=== PATIENT | male | born 1940 | race Caucasian/White ===

== ENCOUNTER 2019-09-02 21:27 | Inpatient (IN) ==
[2019-09-02] MEDS ORDERED: FUROSEMIDE 10 MG/ML VIAL IV ONE (22:48)
[2019-09-02 23:03] LABS: Hematocrit 33.1 % (42.0-52.0); Hemoglobin 10.8 gm/dL (13.5-18.0); Mean Cell Volume 95.1 fl (78-100); Mean Corpuscular Hgb Conc 32.6 g/dl (32-36); Mean Platelet Volume 9.4 fl (8-11.3); Neutrophil # 6.1 K/mm3 (1.3-6.0); Neutrophil % 73.3 % (42-75.0); Platelet Count 166 K/mm3 (150-450); Red Blood Count 3.48 M/mm3 (4.7-6.0); Red Cell Distribution Width 15.8 % (11.5-14.0); White Blood Count 8.3 K/mm3 (4.0-10.5)
--- NOTE | 2019-09-02 23:06 | ERNOTE ---
ER Male HPI Date of Service: 09/02/19 Stated Complaint: LEG EDEMA ER Male: other - anasarca Time Seen by Provider: 09/02/19 22:23 Source: patient Immunizations: IMMUNIZATION HX Immunizations Up to Date Yes History of Influenza Vaccine No Hx Pneumococcal Vaccination Yes Allergies/Adverse Reactions: Allergies hydralazine [Hydralazine] Adverse Reaction (Intermediate, Verified 09/03/19 02:25) Nausea levofloxacin [From Levaquin] Adverse Reaction (Intermediate, Verified 09/03/19 02:25) feet swelling Home Medications: HOME MEDICATIONS fluocinolone 0.025 % topical cream 1 applic TP BID #120 g 08/13/18 [Last Taken Unknown] ascorbic acid (vitamin C) 1,000 mg tablet 1 g PO DAILY #30 tab 08/23/18 [Last Taken Unknown] beta carotene 30 mg capsule 30 mg PO DAILY #30 cap 08/23/18 [Last Taken Unknown] fexofenadine 180 mg tablet 180 mg PO DAILY #30 tab 10/20/18 [Last Taken Unknown] omega-3 fatty acids 1,000 mg capsule 1,000 mg PO DAILY #30 cap 10/20/18 [Last Taken Unknown] omeprazole 40 mg capsule,delayed release 40 mg PO BID #180 cap 10/20/18 [Last Taken Unknown] vitamin B complex 1 tab PO DAILY #30 tab 10/20/18 [Last Taken Unknown] olopatadine 0.6 % nasal spray 2 spray MICHEAL BID #61 g 11/08/18 [Last Taken Unknown] betamethasone valerate 0.1 % topical cream 1 applic TP BID #45 g 05/05/19 [Last Taken Unknown] atenolol 50 mg tablet 50 mg PO BID #60 tab 08/23/19 [Last Taken Unknown] clotrimazole 1 % topical solution 1 applic TP BID #30 ml 08/23/19 [Last Taken Unknown] eplerenone 25 mg tablet 25 mg PO DAILY #30 tab 08/23/19 [Last Taken Unknown] furosemide 80 mg tablet 80 mg PO DAILY #90 tab 08/23/19 [Last Taken Unknown] losartan 100 mg tablet 100 mg PO DAILY #90 tab 08/23/19 [Last Taken Unknown] minoxidil 10 mg tablet 20 mg PO BID #120 tab 08/23/19 [Last Taken Unknown] prazosin 5 mg capsule 5 mg PO Q12H #180 cap 08/23/19 [Last Taken Unknown] Acetaminophen 650 mg PO BID PRN 08/31/19 [Last Taken Unknown] mupirocin 2 % topical ointment 1 applic TP BID #22 g 08/31/19 [Last Taken Unknown] - History of Present Illness Narrative: Patient is a 79 years old male who present with a weight increase of 7 pounds in the last 48 hours. Patient was seen here on August 31Thursday, for legs and scrotal swelling. He was discharged with increase in his dose of furosemide from 80 mg to 120 daily. However patient reports that it has not been effective, and now his scrotum is twice as big, and painful He reports to have been seen by Dr Mata who wanted to admit but his primary wanted to try outpatient treatment first Date (Duration): 08/27/19 Quality: Present: severe, fullness Onset Location: Present: groin, scrotal Radiation: Present: other - down his legs and up his abdomen Prior Treatment: Present: recently seen Review of Systems - Review of Systems Constitutional: Absent: fever EYE: Absent: blurred vision ENT: Absent: ear pain Respiratory: Present: orthopnea. Absent: shortness of breath Cardiology: Absent: chest pain Gastrointestinal/Abdominal: Present: other - feeling of abdominal fullness Genitourinary: Present: pain Musculoskeletal: Present: other - thighs and legs swelling All Other Systems: All systems neg except as marked Medical History (Last Reviewed 09/03/19 @ 02:24 by Mike Kim RN) Edema (Acute) improving Gastroesophageal reflux disease (Chronic) Hypertension (Chronic) Ankle fracture Onset Date: Unknown Ingrown nail Onset Date: ~09/23/13 Aortic insufficiency Onset Date: Unknown Mild to moderate aortic insufficiency with well preserved left ventricular function BPH (benign prostatic hyperplasia) Onset Date: Unknown Cholecystitis Onset Date: Unknown Cholelithiasis Onset Date: Unknown DJD (degenerative joint disease), multiple sites Onset Date: Unknown Erectile dysfunction Onset Date: Unknown History of gastroesophageal reflux (GERD) Onset Date: ~05/27/11 Hypertension Onset Date: ~05/24/11 Obesity Onset Date: Unknown Obstructive sleep apnea Onset Date: Unknown refuses to wear cpap Pneumonia Onset Date: Unknown Pulmonary hypertension Onset Date: Unknown felt to be secondary to sleep apnea Rhinitis Onset Date: Unknown Vitamin D deficiency Onset Date: Unknown Surgical History: Surgical History (Last Reviewed 09/03/19 @ 02:24 by Mike Kim RN) H/O adenoidectomy Onset Date: Unknown as a teenager H/O colonoscopy Onset Date: ~02/11/05 with biopsy Tinguely; scattered sigmoid diverticulosis. Left colon polyp History of appendectomy Onset Date: Unknown History of esophagogastroduodenoscopy (EGD) Onset Date: ~02/11/05 Tinguely; irritation/inflammation History of laparoscopic cholecystectomy Onset Date: ~04/11/10 Tinguely; with cholangiography History of tonsillectomy Onset Date: Unknown as a teenager Skin lesion Onset Date: ~06/16/14 [place]; Multiple around neck Family History: Family History (Last Reviewed 09/03/19 @ 02:24 by Mike Kim RN) Father , age 70 Myocardial infarction Mother , age 78 Heart disease Social History: (Last Reviewed 09/03/19 @ 02:24 by Mike Kim RN) Social History: adopted: No jail: No Marital status: / lives independently: Yes household members: none current occupational status: retired Highest education level completed: 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: occupat Service: Yes branch: [employer] Tobacco: Smoking Status: Former smoker how long ago did patient quit smoking: age 40's Alcohol: alcohol intake: former Substance Use: substance use type: does not use Dietary Habits: caffeine: Yes Physical Exam - Physical Exam General Appearance: Present: alert Head Exam: Present: normal inspection Eye Exam: Normal inspection: bilateral Ears, Nose, Throat: Present: normal ENT inspection Respiratory: Present: normal breath sounds Cardiovascular/Chest: Present: regular rate, rhythm Peripheral Pulses: N=norm/S=strong/W=weak/B=bound/A=absent: Radial (R): Normal, Radial (L): Normal, Dorsalis-pedis (R): Normal, Dorsalis-pedis (L): Normal Gastrointestinal/Abdominal: Present: other - distended Male Genitals Exam: Present: scrotum tenderness (R), other - scrotum and genitalia enlarged with edema Neurological Exam: Present: alert, oriented, normal mood/affect DTR: N=norm/NB=norm/brisk/A=abs/DD=dull/dimin/HC=hyperactive: Ankle (R): Normal, Ankle (L): Normal Skin Exam: Present: other - erythema of genitalia Lymphatic Exam: Present: no adenopathy Progress - Vital Signs Vital Signs: Vital Signs 09/02/19 21:38 Temperature 37 C Pulse Rate 52 L Respiratory Rate 14 Blood Pressure 114/63 O2 Sat by Pulse Oximetry 95 - Progress/Reassessment Chief Complaint: Genitourinary Problem Progress Note-Subjective: 09/03/19 00:40 patient with anasarca, scrotal swelling, pleural effusion and acute renal failur e who failed outpatient treatment. In the ED, received 120 mg IV of furosemide, which allowed him to start urinating, which felt good. Patient large weight gain, 7 lbs, and failed outpatient per oral medication, case discussed with Dr Alejandra, who accepted admission to med/surg inpatient 09/03/19 10:33 - Transfer of Care Expected Disposition: Admit Departure Clinical Impression: Anasarca, Scrotal swelling, Pleural effusion, Acute renal failure - Departure Disposition: Still a patient Condition: Fair
[2019-09-02 23:09] LABS: Urine Bilirubin Negative (NEGATIVE); Urine Ketone Negative (NEGATIVE); Urine Nitrite Negative (NEGATIVE); Urine Protein 30 mg/dL (NEGATIVE); Urine Specific Gravity 1.025 SP.GR. (1.005-1.030); Urine Urobilinogen Normal (NORMAL); Urine pH 5.5 pH (5.0-7.0)
[2019-09-02 23:10] LABS: Urine Appearance Slightly Cloudy (CLEAR); Urine Bacteria 3+; Urine Blood 10 /ul (NEGATIVE); Urine Color Yellow; Urine RBC 0-5 /hpf (0-5); Urine Renal Epithelial Cell Moderate - 2+ /hpf
[2019-09-02 23:24] LABS: Albumin * 3.7 gm/dl (3.4-5.0); Anion Gap 12.9 mmol/L (6.8-13.8); Bilirubin, Total 0.6 mg/dL (0.0-1.1); Ca. Corrected For Albumin 8.6 mg/dL (8.4-10.2); Calcium * 8.7 mg/dL (7.9-10.9); Carbon Dioxide 28.7 mmol/L (24-32.6); Potassium 4.6 mmol/L (3.4-4.6); Total Protein 6.9 gm/dL (6.2-8.2)
[2019-09-03] MEDS ORDERED: NYSTATIN 15 APPL TUBE TP ONE (00:12)
[2019-09-03] MEDS ORDERED: NYSTATIN 30 APPL TUBE TP ONE (00:38)
[2019-09-03] MEDS ORDERED: ATENOLOL 50 MG TABLET PO ONE (01:37)
[2019-09-03] MEDS ORDERED: ACETAMINOPHEN 325 MG TABLET PO ONE (01:38)
[2019-09-03] MEDS ORDERED: FUROSEMIDE 10 MG/ML VIAL IV ONE (08:46)
[2019-09-03] MEDS ORDERED: MINOXIDIL 2.5 MG TABLET PO SCH (09:00)
[2019-09-03] MEDS ORDERED: MINOXIDIL 2.5 MG TABLET PO ONE (13:45)
[2019-09-03 15:32] LABS: Albumin * 3.6 gm/dl (3.4-5.0); Anion Gap 13.3 mmol/L (6.8-13.8); BUN/Creatinine Ratio 32.9 (9.0-21.6); Bilirubin, Total 0.7 mg/dL (0.0-1.1); Ca. Corrected For Albumin 8.6 mg/dL (8.4-10.2); Calcium * 8.6 mg/dL (7.9-10.9); Carbon Dioxide 27.8 mmol/L (24-32.6); Potassium 4.1 mmol/L (3.4-4.6); Total Protein 6.9 gm/dL (6.2-8.2)
[2019-09-03] MEDS: LOSARTAN POTASSIUM 50 MG TABLET PO SCH (15:33)
[2019-09-03] MEDS: EPLERENONE 25 MG PO SCH (15:34)
[2019-09-03] MEDS: PRAZOSIN HCL 5 MG CAPSULE PO SCH (15:34)
[2019-09-03] MEDS: FUROSEMIDE 10 MG/ML VIAL IV SCH ×2 (15:37→20:08)
[2019-09-03] MEDS: ATENOLOL 50 MG TABLET PO SCH ×2 (16:55→20:10)
[2019-09-03] MEDS: MUPIROCIN 22 APPL TUBE TP SCH (20:07)
[2019-09-03] MEDS: BETAMETHASONE VALERATE 15 APPL TUBE TP SCH (20:07)
[2019-09-03] MEDS: MINOXIDIL 2.5 MG TABLET PO SCH (20:08)
[2019-09-03] MEDS: PANTOPRAZOLE SODIUM 40 MG TABLET.EC PO SCH (20:09)
[2019-09-03] MEDS ORDERED: [UNRECOGNIZED DRUG - OTHER] TP SCH (21:00)
--- NOTE | 2019-09-03 23:42 | HP ---
Chief Complaint - Chief Complaint Date of Service: 09/03/19 Time of Service: 12:00 Chief Complaint: Swelling in legs, scrotum, and abdomen History of Present Illness: Mariano is a 79 yo male who has been having difficulty with edema for the last few months. He has seen cardiology multiple times and has seen multiple shoe patternmaker for second opinions. Based on echocardiograms there has been no evidence of heart failure as to the cause of his edema. He sees Dr. Adan who has been diuresing him with lasix. He recently has gained about 30 lbs and notices it in the legs, abdomen, and scrotum. He reports not urinating much. He reports his lasix dose was recently increased by Dr. Adan but he did not notice much improvement. He began having scotal pain due to the swelling and presented to the [facility] ER. He was given 120mg of IV lasix and diuresed some in the ER. Medical History (Last Reviewed 09/03/19 @ 02:24 by Mike Kim RN) Edema (Acute) improving Gastroesophageal reflux disease (Chronic) Hypertension (Chronic) Ankle fracture Onset Date: Unknown Ingrown nail Onset Date: ~09/23/13 Aortic insufficiency Onset Date: Unknown Mild to moderate aortic insufficiency with well preserved left ventricular function BPH (benign prostatic hyperplasia) Onset Date: Unknown Cholecystitis Onset Date: Unknown Cholelithiasis Onset Date: Unknown DJD (degenerative joint disease), multiple sites Onset Date: Unknown Erectile dysfunction Onset Date: Unknown History of gastroesophageal reflux (GERD) Onset Date: ~05/27/11 Hypertension Onset Date: ~05/24/11 Obesity Onset Date: Unknown Obstructive sleep apnea Onset Date: Unknown refuses to wear cpap Pneumonia Onset Date: Unknown Pulmonary hypertension Onset Date: Unknown felt to be secondary to sleep apnea Rhinitis Onset Date: Unknown Vitamin D deficiency Onset Date: Unknown Surgical History: Surgical History (Last Reviewed 09/03/19 @ 02:24 by Mike Kim RN) H/O adenoidectomy Onset Date: Unknown as a teenager H/O colonoscopy Onset Date: ~02/11/05 with biopsy Tinguely; scattered sigmoid diverticulosis. Left colon polyp History of appendectomy Onset Date: Unknown History of esophagogastroduodenoscopy (EGD) Onset Date: ~02/11/05 Tinguely; irritation/inflammation History of laparoscopic cholecystectomy Onset Date: ~04/11/10 Tinguely; with cholangiography History of tonsillectomy Onset Date: Unknown as a teenager Skin lesion Onset Date: ~06/16/14 [place]; Multiple around neck Family History: Family History (Last Reviewed 09/03/19 @ 02:24 by Mike Kim RN) Father , age 70 Myocardial infarction Mother , age 78 Heart disease Social History: (Last Reviewed 09/03/19 @ 02:24 by Mike Kim RN) Social History: adopted: No senior living: No Marital status: / lives independently: Yes household members: none current occupational status: retired Highest education level completed: 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: occupat Service: Yes branch: [employer] Tobacco: Smoking Status: Former smoker how long ago did patient quit smoking: age 40's Alcohol: alcohol intake: former Substance Use: substance use type: does not use Dietary Habits: caffeine: Yes Review Of Systems (GEN) - Review of Systems Generalized/Overall Review: Present: Weakness. Absent: Chills, Fever EENTM: Present: No Symptoms Reported Respiratory: Present: Cough, Shortness of Breath Cardiac: Present: Edema. Absent: Chest Pain, Palpitations, Syncope Abdominal: Present: Abdominal Pain, Other - abdominal distension. Absent: Nausea, Vomiting, Hematemesis Genitourinary: Present: Retention, Oliguria, Other - scrotal swelling. Absent: Hematuria, Dysuria Musculoskeletal: Present: No Symptoms Reported Neurological: Present: No Symptoms Reported Skin: Present: Other - weeping lesions Immunizations: IMMUNIZATION HX Immunizations Up to Date Yes History of Influenza Vaccine No Hx Pneumococcal Vaccination Yes Allergies/Adverse Reactions: Allergies Allergy/AdvReac Type Severity Reaction Status Date / Time hydralazine [Hydralazine] AdvReac Intermediate Nausea Verified 09/03/19 02:25 levofloxacin [From Levaquin] AdvReac Intermediate feet Verified 09/03/19 02:25 swelling Home Medications: HOME MEDICATIONS fluocinolone 0.025 % topical cream 1 applic TP BID #120 g 08/13/18 [Last Taken Unknown] ascorbic acid (vitamin C) 1,000 mg tablet 1 g PO DAILY #30 tab 08/23/18 [Last Taken Unknown] beta carotene 30 mg capsule 30 mg PO DAILY #30 cap 08/23/18 [Last Taken Unknown] fexofenadine 180 mg tablet 180 mg PO DAILY #30 tab 10/20/18 [Last Taken Unknown] omega-3 fatty acids 1,000 mg capsule 1,000 mg PO DAILY #30 cap 10/20/18 [Last Taken Unknown] omeprazole 40 mg capsule,delayed release 40 mg PO BID #180 cap 10/20/18 [Last Taken Unknown] vitamin B complex 1 tab PO DAILY #30 tab 10/20/18 [Last Taken Unknown] olopatadine 0.6 % nasal spray 2 spray MICHEAL BID #61 g 11/08/18 [Last Taken Unknown] betamethasone valerate 0.1 % topical cream 1 applic TP BID #45 g 05/05/19 [Last Taken Unknown] atenolol 50 mg tablet 50 mg PO BID #60 tab 08/23/19 [Last Taken Unknown] clotrimazole 1 % topical solution 1 applic TP BID #30 ml 08/23/19 [Last Taken Unknown] eplerenone 25 mg tablet 25 mg PO DAILY #30 tab 08/23/19 [Last Taken Unknown] furosemide 80 mg tablet 80 mg PO DAILY #90 tab 08/23/19 [Last Taken Unknown] losartan 100 mg tablet 100 mg PO DAILY #90 tab 08/23/19 [Last Taken Unknown] minoxidil 10 mg tablet 20 mg PO BID #120 tab 08/23/19 [Last Taken Unknown] prazosin 5 mg capsule 5 mg PO Q12H #180 cap 08/23/19 [Last Taken Unknown] Acetaminophen 650 mg PO BID PRN 08/31/19 [Last Taken Unknown] mupirocin 2 % topical ointment 1 applic TP BID #22 g 08/31/19 [Last Taken Unknown] Exam - Exam Vital Signs: Vital Signs - Last Taken Temp 36.6 C 09/03/19 17:44 Pulse 63 09/03/19 20:10 Resp 24 H 09/03/19 17:44 BP 125/60 09/03/19 20:10 Pulse Ox 94 09/03/19 17:44 Constitutional: Present: Alert, Oriented x3, Cooperative ENT Exam: Present: hearing grossly normal Eye Exam: bilateral eye: normal inspection Respiratory: Present: lungs clear, normal breath sounds Cardiovascular/Chest: Present: regular rate, rhythm, no murmur Abdomen: Present: Normal bowel sounds, soft, other - brawny lower abdomen with distention /Rectal: Present: Other - scrotum is cantalope sized Extremity: Present: lower extremity edema - 3+ with weeping skin Skin Exam: Present: normal color, warm/dry, no cyanosis, other - Brawny edema of abdomen from umbilicus and below Appearance: Present: appropriate appearance, appropriate insight Eye contact: Present: cooperative, good eye contact, normal speech Thoughts: Present: normal thought pattern, no apparent hallucination Diagnostic Studies: Abnormal Lab Results 09/03/19 09/03/19 Range/Units 00:16 15:12 BUN 54 H (6-23) mg/dL Creatinine 1.64 H (0.4-1.4) mg/dL Est GFR (Non-Af Amer) 43 L (60-130) mL/min BUN/Creatinine Ratio 32.9 H (9.0-21.6) Random Glucose 123 H (70-110) mg/dL B-Natriuretic Peptide 4459 H (5-650) pg/mL Microbiology 09/03/19 03:45 - Final Nares MRSA Negative Laboratory Results WBC 8.3 K/mm3 (4.0-10.5) D 09/02/19 23:00 RBC 3.48 M/mm3 (4.7-6.0) L 09/02/19 23:00 Hgb 10.8 gm/dL (13.5-18.0) L 09/02/19 23:00 Hct 33.1 % (42.0-52.0) L 09/02/19 23:00 MCV 95.1 fl (78-100) 09/02/19 23:00 MCH 31.0 pg (27-31) 09/02/19 23:00 MCHC 32.6 g/dl (32-36) 09/02/19 23:00 RDW 15.8 % (11.5-14.0) H 09/02/19 23:00 Plt Count 166 K/mm3 (150-450) 09/02/19 23:00 MPV 9.4 fl (8-11.3) 09/02/19 23:00 Immature Gran % (Auto) 0.20 % (0.001-0.429) 09/02/19 23:00 Immature Gran # (Auto) 0.02 K/mm3 (0.000-0.0310) 09/02/19 23:00 Neutrophils % 73.3 % (42-75.0) 09/02/19 23:00 Lymphocytes % 14.6 % (20-51) L 09/02/19 23:00 Monocytes % 8.2 % (0.0-9) 09/02/19 23:00 Eosinophils % 3.1 % (0.0-3.0) H 09/02/19 23:00 Basophils % 0.6 % (0.0-1.0) 09/02/19 23:00 Nucleated RBC % 0.0 k/mm3 (0-1) 09/02/19 23:00 Neutrophils # 6.1 K/mm3 (1.3-6.0) H 09/02/19 23:00 Lymphocytes # 1.21 k/mm3 (1.5-3.5) L 09/02/19 23:00 Monocytes # 0.7 k/mm3 (0.0-1.0) 09/02/19 23:00 Eosinophils # 0.3 k/mm3 (0.0-0.7) 09/02/19 23:00 Absolute Basophils 0.1 k/mm3 (0.0-0.1) 09/02/19 23:00 Sodium 142 mmol/L (132-142) 09/03/19 15:12 Plasma Sodium 142 mmol/L (130-142) 09/03/19 15:12 Potassium 4.1 mmol/L (3.4-4.6) 09/03/19 15:12 Chloride 105 mmol/L (97-106) 09/03/19 15:12 Carbon Dioxide 27.8 mmol/L (24-32.6) 09/03/19 15:12 Anion Gap 13.3 mmol/L (6.8-13.8) 09/03/19 15:12 BUN 54 mg/dL (6-23) H 09/03/19 15:12 Creatinine 1.64 mg/dL (0.4-1.4) H 09/03/19 15:12 Est GFR (Non-Af Amer) 43 mL/min (60-130) L 09/03/19 15:12 BUN/Creatinine Ratio 32.9 (9.0-21.6) H 09/03/19 15:12 Random Glucose 123 mg/dL (70-110) H 09/03/19 15:12 Lactic Acid, Venous 0.7 mmol/L (0.4-2.0) 09/02/19 23:00 Calcium 8.6 mg/dL (7.9-10.9) 09/03/19 15:12 Calcium Adj for Albumin 8.6 mg/dL (8.4-10.2) 09/03/19 15:12 Total Bilirubin 0.7 mg/dL (0.0-1.1) 09/03/19 15:12 AST 22 U/L (0-48) 09/03/19 15:12 ALT 19 U/L (19-67) 09/03/19 15:12 Alkaline Phosphatase 140 U/L (50-170) 09/03/19 15:12 B-Natriuretic Peptide 4459 pg/mL (5-650) H 09/03/19 00:16 Total Protein 6.9 gm/dL (6.2-8.2) 09/03/19 15:12 Albumin 3.6 gm/dl (3.4-5.0) 09/03/19 15:12 Urine Color Yellow 09/02/19 23:04 Urine Appearance Slightly cloudy (CLEAR) 09/02/19 23:04 Urine pH 5.5 pH (5.0-7.0) 09/02/19 23:04 Ur Specific [place] 1.025 SP.GR. (1.005-1.030) 09/02/19 23:04 Urine Protein 30 mg/dL (NEGATIVE) H 09/02/19 23:04 Urine Glucose (UA) Negative mg/dL (NEGATIVE) 09/02/19 23:04 Urine Ketones Negative mg/dL (NEGATIVE) 09/02/19 23:04 Urine Blood 10 /ul (NEGATIVE) H 09/02/19 23:04 Urine Nitrate Negative (NEGATIVE) 09/02/19 23:04 Urine Bilirubin Negative mg/dl (NEGATIVE) 09/02/19 23:04 Prot Sulfosalicylic Acd 2+ mg/dL (0) H 09/02/19 23:04 Urine Urobilinogen Normal EU/dl (NORMAL) 09/02/19 23:04 Ur Leukocyte Esterase 25 /ul (NEGATIVE) H 09/02/19 23:04 Urine RBC 0-5 /hpf (0-5) 09/02/19 23:04 Urine WBC 5-10 /hpf (0-5) H 09/02/19 23:04 Ur Epithelial Cells None seen /hpf (0-5) 09/02/19 23:04 Ur Renal Epithelial Cell Moderate - 2+ /hpf (NONE) H 09/02/19 23:04 Urine Bacteria 3+ (NONE) H 09/02/19 23:04 Urine Culture Comments Culture to follow 09/02/19 23:04 Assessment/Plan - Narrative Narrative: Mariano is a 79 yo male with severe edema from abdomen and below. He has been previously evaluated for heart failure and negative. No evidence of liver failure. There is renal dysfunction with elevated creatinine. This may be elevated due to recent increase in oral lasix. Will monitor this while giving IV lasix. Consider nephrotic syndrome. May also consider venous obstruction. May consider abdominal/pelvis CT. Will schedule IV lasix 80mg q6hr. Will monitor renal function and electrolytes. He has significant anasarca and needs close monitoring of labs while using IV diuretics. Due to the severe amount of fluid and unresponsiveness to oral lasix he needs inpatient treatment to treat and monitor. Expect >2 midnights to diurese and evaluate for cause. - Assessment/Plan (1) Stasis dermatitis of both legs Problem: Acute (2) Anasarca Problem: Acute (3) Scrotal swelling Problem: Acute (4) Pleural effusion Problem: Acute (5) Ulcers of both lower extremities, limited to breakdown of skin Problem: Chronic (6) Edema extremities Problem: Chronic
[2019-09-03] MEDS: OLOPATADINE HCL NS SCH (23:45)
[2019-09-04] MEDS: ACETAMINOPHEN 650 MG TABLET PO PRN (01:01)
[2019-09-04] MEDS: PRAZOSIN HCL 5 MG CAPSULE PO SCH ×2 (01:53→14:19)
[2019-09-04] MEDS: FUROSEMIDE 10 MG/ML VIAL IV SCH ×4 (02:13→21:49)
[2019-09-04] MEDS: BETA CAROTENE PO SCH (09:02)
[2019-09-04] MEDS: PANTOPRAZOLE SODIUM 40 MG TABLET.EC PO SCH ×2 (09:04→21:44)
[2019-09-04] MEDS: LORATADINE 10 MG TABLET PO SCH (09:04)
[2019-09-04] MEDS: EPLERENONE 25 MG PO SCH (09:04)
[2019-09-04] MEDS: LOSARTAN POTASSIUM 50 MG TABLET PO SCH (09:04)
[2019-09-04] MEDS: ATENOLOL 50 MG TABLET PO SCH ×2 (09:05→21:48)
[2019-09-04] MEDS: ASCORBIC ACID 500 MG TABLET PO SCH (09:05)
[2019-09-04] MEDS: MUPIROCIN 22 APPL TUBE TP SCH ×2 (09:08→21:44)
[2019-09-04] MEDS: MINOXIDIL 2.5 MG TABLET PO SCH ×2 (09:09→21:47)
[2019-09-04] MEDS: BETAMETHASONE VALERATE 15 APPL TUBE TP SCH ×2 (09:09→22:45)
[2019-09-04] MEDS: OLOPATADINE HCL NS SCH ×2 (09:23→22:45)
[2019-09-04] MEDS: SULFAMETHOXAZOLE/TRIMETHOPRIM 1 TAB TABLET PO SCH ×2 (11:41→21:44)
[2019-09-04 12:14] LABS: Hematocrit 31.2 % (42.0-52.0); Hemoglobin 10.2 gm/dL (13.5-18.0); Mean Cell Volume 95.1 fl (78-100); Mean Corpuscular Hemoglobin 31.1 pg (27-31); Mean Corpuscular Hgb Conc 32.7 g/dl (32-36); Mean Platelet Volume 9.4 fl (8-11.3); Neutrophil # 6.7 K/mm3 (1.3-6.0); Platelet Count 157 K/mm3 (150-450); Red Blood Count 3.28 M/mm3 (4.7-6.0); Red Cell Distribution Width 15.8 % (11.5-14.0); White Blood Count 8.9 K/mm3 (4.0-10.5)
[2019-09-04 12:39] LABS: Albumin * 3.4 gm/dl (3.4-5.0); Anion Gap 12.8 mmol/L (6.8-13.8); BUN/Creatinine Ratio 28.5 (9.0-21.6); Ca. Corrected For Albumin 8.7 mg/dL (8.4-10.2); Calcium * 8.5 mg/dL (7.9-10.9); Carbon Dioxide 28.2 mmol/L (24-32.6); Total Protein 6.4 gm/dL (6.2-8.2)
--- NOTE | 2019-09-04 23:48 | PN ---
Subjective - Date and Time Seen Date: 09/04/19 Time: 15:30 Subjective Narrative: Reports feeling better, less swelling. Going to the bathroom well. No fever, chills, nausea, or vomiting. No concerns. Objective - Vitals Vitals: Last Vital Signs Temp 36.5 C 09/04/19 19:59 Pulse 62 09/04/19 22:44 Resp 20 09/04/19 22:44 BP 109/58 09/04/19 22:44 Pulse Ox 97 09/04/19 22:44 - Abnormal Lab Findings Abnormal Lab Findings: Abnormal Lab Results 09/04/19 09/04/19 Range/Units 11:57 11:57 RBC 3.28 L (4.7-6.0) M/mm3 Hgb 10.2 L (13.5-18.0) gm/dL Hct 31.2 L (42.0-52.0) % MCH 31.1 H (27-31) pg RDW 15.8 H (11.5-14.0) % Lymphocytes % 11.7 L (20-51) % Monocytes % 10.6 H (0.0-9) % Neutrophils # 6.7 H (1.3-6.0) K/mm3 Lymphocytes # 1.04 L (1.5-3.5) k/mm3 Plasma Sodium 143 H (130-142) mmol/L BUN 53 H (6-23) mg/dL Creatinine 1.86 H (0.4-1.4) mg/dL Est GFR (Non-Af Amer) 37 L (60-130) mL/min BUN/Creatinine Ratio 28.5 H (9.0-21.6) Random Glucose 134 H (70-110) mg/dL ALT 16 L (19-67) U/L - Exam Constitutional: Present: Alert, Oriented x3, Cooperative Respiratory: Present: lungs clear, no respiratory distress Cardiovascular/Chest: Present: regular rate, rhythm, no murmur, edema - 2+ Abdomen: Present: Normal bowel sounds, nontender, distended /Rectal: Present: Other - scrotum cantalope sized, a little less swollen than yesterday Skin Exam: Present: other - brawny skin of abdomen Neurologic: Present: alert, normal mood/affect, oriented x 3 Appearance: Present: appropriate appearance, appropriate insight Eye contact: Present: cooperative, good eye contact, normal speech Cauti Physician Documentation - Urinary Catheter Management Coude Date of Insertion: 09/03/19 Time of Insertion: 14:00 Assessment/Plan Plan Narrative: Improvement of fluid status, renal function stable. Electrolytes stable. Reportedly no heart failure by cardiology. Consider nephrotic syndrome vs venous obstruction. Consider abdominal/pelvis imagine but would prefer contrast which is not possible due to renal function. Continue scheduled lasix for now IV. - Problems/Diagnosis (1) Stasis dermatitis of both legs Problem: Acute (2) Anasarca Problem: Acute (3) Scrotal swelling Problem: Acute (4) Pleural effusion Problem: Acute (5) Ulcers of both lower extremities, limited to breakdown of skin Problem: Chronic (6) Edema extremities Problem: Chronic
[2019-09-05] MEDS: PRAZOSIN HCL 5 MG CAPSULE PO SCH ×2 (01:39→13:33)
[2019-09-05] MEDS: FUROSEMIDE 10 MG/ML VIAL IV SCH ×3 (03:20→21:28)
[2019-09-05] MEDS: ACETAMINOPHEN 650 MG TABLET PO PRN (03:20)
[2019-09-05] MEDS: traMADol HCL 50 MG TABLET PO PRN ×2 (09:01→21:26)
[2019-09-05] MEDS: MINOXIDIL 2.5 MG TABLET PO SCH ×2 (09:03→21:27)
[2019-09-05] MEDS: ASCORBIC ACID 500 MG TABLET PO SCH (09:04)
[2019-09-05] MEDS: PANTOPRAZOLE SODIUM 40 MG TABLET.EC PO SCH ×2 (09:07→21:37)
[2019-09-05] MEDS: METOLAZONE 5 MG TABLET PO SCH (09:07)
[2019-09-05] MEDS: MUPIROCIN 22 APPL TUBE TP SCH ×2 (09:07→21:29)
[2019-09-05] MEDS: LOSARTAN POTASSIUM 50 MG TABLET PO SCH (09:08)
[2019-09-05] MEDS: ATENOLOL 50 MG TABLET PO SCH ×2 (09:21→21:21)
[2019-09-05] MEDS: LORATADINE 10 MG TABLET PO SCH (09:21)
[2019-09-05] MEDS: EPLERENONE 25 MG PO SCH (09:22)
[2019-09-05] MEDS: BETA CAROTENE PO SCH (09:23)
[2019-09-05] MEDS: SULFAMETHOXAZOLE/TRIMETHOPRIM 1 TAB TABLET PO SCH (09:25)
[2019-09-05] MEDS: BETAMETHASONE VALERATE 15 APPL TUBE TP SCH ×2 (09:25→21:29)
[2019-09-05] MEDS: OLOPATADINE HCL NS SCH ×2 (09:58→21:27)
--- NOTE | 2019-09-05 11:23 | PN ---
Subjective - Date and Time Seen Date: 09/05/19 Time: 11:16 Subjective Narrative: patient complaining of leg pain- tight. per nurse has had only 400 ml over the shift superintendent despite lasix. his urine is dark. Objective - Review of Systems Generalized/Overall Review: Reports: Weakness. Denies: Chills, Fever EENTM: Denies: Blurred Vision Respiratory: Reports: Shortness of Breath, Orthopnea. Denies: Cough Cardiac: Reports: Edema. Denies: Chest Pain, Palpitations Abdominal: Denies: Nausea, Vomiting Genitourinary Symptoms: Reports: Retention. Denies: Urgency, Frequency Musculoskeletal Complaints: Reports: Joint Pain Neurological: Denies: Headache Skin: Reports: Other - superficial ulcers. Denies: Lesions, Rash Endocrine: Reports: Intolerance to Cold, Intolerance to Heat Misc: All systems neg except as marked - Vitals Vitals: Last Vital Signs Temp 37.4 C 09/05/19 10:15 Pulse 94 09/05/19 10:15 Resp 18 09/05/19 10:15 BP 100/48 09/05/19 10:15 Pulse Ox 94 09/05/19 10:15 - Abnormal Lab Findings Abnormal Lab Findings: Abnormal Lab Results 09/04/19 09/04/19 Range/Units 11:57 11:57 RBC 3.28 L (4.7-6.0) M/mm3 Hgb 10.2 L (13.5-18.0) gm/dL Hct 31.2 L (42.0-52.0) % MCH 31.1 H (27-31) pg RDW 15.8 H (11.5-14.0) % Lymphocytes % 11.7 L (20-51) % Monocytes % 10.6 H (0.0-9) % Neutrophils # 6.7 H (1.3-6.0) K/mm3 Lymphocytes # 1.04 L (1.5-3.5) k/mm3 Plasma Sodium 143 H (130-142) mmol/L BUN 53 H (6-23) mg/dL Creatinine 1.86 H (0.4-1.4) mg/dL Est GFR (Non-Af Amer) 37 L (60-130) mL/min BUN/Creatinine Ratio 28.5 H (9.0-21.6) Random Glucose 134 H (70-110) mg/dL ALT 16 L (19-67) U/L - Exam Constitutional: Present: Alert, Oriented x3, Cooperative, Morbidly obese ENT Exam: Present: hearing grossly normal Neck: Present: supple. Absent: limited range of motion, lymphadenopathy (R) Respiratory: Present: decreased breath sounds, No rales, No wheezing Cardiovascular/Chest: Present: regular rate, rhythm, no JVD, no murmur Abdomen: Present: Normal bowel sounds, soft, nontender, obese, other - pannus, distended Extremity: Present: no calf tenderness, lower extremity edema Cauti Physician Documentation - Urinary Catheter Management Coude Date of Insertion: 09/03/19 Time of Insertion: 14:00 Assessment/Plan Plan Narrative: Mariano was admitted for swelling of the legs, scrotum and abdomen. His chest x-ray shows mild pulmonary venous congestion with stable cardiomegaly. His BNP was 4459. His creatinine today is up to 1.87 from 1.80 on admission. He had been responding well for the first 2 days with IV Lasix that was started by the physician extension associate but today has noticed that there was less output and the urine was dark. He was also started on Bactrim for a Klebsiella pneumonia urinary tract infection. While initially his acute renal failure could be prerenal from an increase in his Lasix this could also be from a renal cause due to acute tubular necrosis or acute interstitial nephritis from antibiotics. We will discontinue his Bactrim and start him on IV Rocephin. We will get CPK, aldolase, haptoglobin, LDH, and indirect bilirubin. We will recheck his urinalysis to see if there is some WBC casts. We will also get a renal ultrasound. May also need to do US of hsi scrotum pending MATTHEW. We will get a spot urine creatinine to protein ratio. I have decreased his IV Lasix from 80 mg every 6 hours to 100 mg every 12 hours and will add Zaroxolyn 5 mg an hour before the morning IV Lasix dose. I will treat get in touch with nephrology. - Problems/Diagnosis (1) Acute renal failure Problem: Acute (2) Anasarca Problem: Acute (3) Scrotal swelling Problem: Acute (4) Edema Problem: Acute (5) Stasis dermatitis of both legs Problem: Acute (6) CHF (congestive heart failure) Problem: Chronic Qualifiers: Heart failure type: diastolic Heart failure chronicity: chronic Qualified Code(s): I50.32 - Chronic diastolic (congestive) heart failure (7) Hyperlipidemia Problem: Chronic Qualifiers: Hyperlipidemia type: pure hypercholesterolemia Qualified Code(s): E78.00 - Pure hypercholesterolemia, unspecified; E78.0 - Pure hypercholesterolemia (8) Hypertension Problem: Chronic Qualifiers: Hypertension type: essential hypertension Qualified Code(s): I10 - Essential (primary) hypertension (9) Pannus, abdominal Problem: Chronic (10) Ulcers of both lower extremities, limited to breakdown of skin Problem: Chronic
[2019-09-05 13:01] LABS: Urine Bilirubin 1 mg/dl (NEGATIVE); Urine Blood 250 /ul (NEGATIVE); Urine Ketone Negative (NEGATIVE); Urine Nitrite Negative (NEGATIVE); Urine Protein 30 mg/dL (NEGATIVE); Urine Specific Gravity 1.025 SP.GR. (1.005-1.030); Urine Urobilinogen Normal (NORMAL)
[2019-09-05 13:13] LABS: Urine Appearance Cloudy (CLEAR); Urine Bacteria 3+; Urine Color Dark Yellow; Urine RBC 25-50 /hpf (0-5); Urine WBC 25-50 /hpf (0-5)
[2019-09-05 13:14] LABS: Urine Coarse Granular Cast 0-5 /LPF; Urine Fine Granular Cast 0-5 /LPF
[2019-09-05 13:53] LABS: Bilirubin Direct 0.6 mg/dL (0.0-0.3)
[2019-09-05 15:11] LABS: Urine Bilirubin 1 mg/dl (NEGATIVE); Urine Blood 250 /ul (NEGATIVE); Urine Ketone 5 mg/dL (NEGATIVE); Urine Nitrite Negative (NEGATIVE); Urine Protein 15 mg/dL (NEGATIVE); Urine Specific Gravity >=1.030 SP.GR. (1.005-1.030); Urine Urobilinogen Normal (NORMAL)
[2019-09-05 15:12] LABS: Urine Appearance Slightly Cloudy (CLEAR); Urine Color Dark Yellow; Urine RBC 25-50 /hpf (0-5); Urine WBC 25-50 /hpf (0-5)
[2019-09-05 15:13] LABS: Urine Bacteria 3+; Urine Coarse Granular Cast 0-5 /LPF; Urine Fine Granular Cast 0-5 /LPF; Urine Hyaline Cast 0-5 /LPF
[2019-09-05] MEDS ORDERED: METOLAZONE 5 MG TABLET PO ONE (21:00)
[2019-09-05] MEDS ORDERED: ONDANSETRON HCL/PF 2 MG/ML VIAL IV PRN (23:25)
[2019-09-06] MEDS: PRAZOSIN HCL 5 MG CAPSULE PO SCH (02:53)
[2019-09-06 06:26] LABS: Hematocrit 29.5 % (42.0-52.0); Hemoglobin 9.7 gm/dL (13.5-18.0); Mean Cell Volume 94.2 fl (78-100); Mean Corpuscular Hgb Conc 32.9 g/dl (32-36); Mean Platelet Volume 9.5 fl (8-11.3); Neutrophil # 8.7 K/mm3 (1.3-6.0); Neutrophil % 78.8 % (42-75.0); Platelet Count 150 K/mm3 (150-450); Red Blood Count 3.13 M/mm3 (4.7-6.0); Red Cell Distribution Width 15.5 % (11.5-14.0)
[2019-09-06 06:41] LABS: Anion Gap 11.9 mmol/L (6.8-13.8); BUN/Creatinine Ratio 16.9 (9.0-21.6); Bilirubin, Total 0.9 mg/dL (0.0-1.1); Ca. Corrected For Albumin 8.7 mg/dL (8.4-10.2); Calcium * 8.2 mg/dL (7.9-10.9); Carbon Dioxide 28.1 mmol/L (24-32.6); Total Protein 6.1 gm/dL (6.2-8.2)
[2019-09-06] MEDS: MUPIROCIN 22 APPL TUBE TP SCH (08:20)
[2019-09-06] MEDS: PANTOPRAZOLE SODIUM 40 MG TABLET.EC PO SCH (08:20)
[2019-09-06] MEDS: ASCORBIC ACID 500 MG TABLET PO SCH (08:21)
[2019-09-06] MEDS: LORATADINE 10 MG TABLET PO SCH (08:21)
[2019-09-06] MEDS: ATENOLOL 50 MG TABLET PO SCH (08:23)
[2019-09-06] MEDS: BETA CAROTENE PO SCH (08:35)
[2019-09-06] MEDS: OLOPATADINE HCL NS SCH (08:36)
[2019-09-06] MEDS: EPLERENONE 25 MG PO SCH (08:38)
[2019-09-06] MEDS: BETAMETHASONE VALERATE 15 APPL TUBE TP SCH (08:39)
[2019-09-06] MEDS: LOSARTAN POTASSIUM 50 MG TABLET PO SCH (08:39)
--- NOTE | 2019-09-06 08:41 | DS ---
(1) Acute renal failure Problem: Acute (2) Anasarca Problem: Acute (3) Scrotal swelling Problem: Acute (4) Edema Problem: Acute (5) Stasis dermatitis of both legs Problem: Acute (6) CHF (congestive heart failure) Problem: Chronic Qualifiers: Heart failure type: diastolic Heart failure chronicity: chronic Qualified Code(s): I50.32 - Chronic diastolic (congestive) heart failure (7) Hyperlipidemia Problem: Chronic Qualifiers: Hyperlipidemia type: pure hypercholesterolemia Qualified Code(s): E78.00 - Pure hypercholesterolemia, unspecified; E78.0 - Pure hypercholesterolemia (8) Hypertension Problem: Chronic Qualifiers: Hypertension type: essential hypertension Qualified Code(s): I10 - Essential (primary) hypertension (9) Pannus, abdominal Problem: Chronic (10) Ulcers of both lower extremities, limited to breakdown of skin Problem: Chronic Description of Stay: Mariano Shukla is a 79 yo male with past medical history of chronic renal failure stage III, hypertension, obstructive sleep apnea, congestive heart failure who was admitted on 09/03/2019 because of increasing swelling of his legs scrotum and abdomen. He recently has gained about 30 lbs and notices it in the legs, abdomen, and scrotum. He reports not urinating much. He reports his lasix dose was recently increased but he did not notice much improvement. He began having scrotal pain due to the swelling and presented to the [facility] ER. He was given 120mg of IV lasix and diuresed some in the ER. His chest x-ray showed mild pulmonary congestion, stable cardiomegaly. His BNP was elevated at 4840 and he did complain dyspnea of exertion and orthopnea. His echocardiogram in 2017 showed moderate show left ventricular hypertrophy ejection fraction of 68%, pseudo-normalization, RVSP of 51, IVC not dilated. The patient was admitted and was started on IV Lasix 80 mg IV every 6 hours by the elementary education tutor physician. With the first 2 days the patient diuresed a good amount of fluid however on the third day his urine output started going down. He was also started on Bactrim because of a Klebsiella pneumonia urinary tract infection. We changed his Lasix to twice a day but I added Zaroxolyn 1/2-hour before Lasix was given. His urine output was 200 mL the whole day yesterday. He also started having tea colored urine. His repeat urinalysis showed this blood and RBCs as well as WBCs and leukocyte esterase, fine and coarse granular cast as well as hyaline cast. While his acute renal failure was likely prerenal, acute interstitial nephritis/acute tubular necrosis was suspected and so Bactrim was stopped and IV Rocephin started. His random/spot urine protein to creatinine ratio was 464 mg/g. His CK was normal. Aldolase is pending. His lactate dehydrogenase was also normal and his indirect bilirubin was normal. His renal ultrasound showed no hydronephrosis. This morning the patient creatinine has bumped up to 4.06 from 1.64 on admission and the patient is oliguric. His BNP this morning is also elevated at 12,900. We will transfer patient to the nearest facility with nephrology services available. Results and Findings: Pending Mircobiology Results 09/05/19 12:50 Urine,Catheterized Urine Culture - Preliminary No Growth Lab Pending Results 09/02/19 23:00: WBC 8.3 D, RBC 3.48 L, Hgb 10.8 L, Hct 33.1 L, MCV 95.1, MCH 31.0, MCHC 32.6, RDW 15.8 H, Plt Count 166, MPV 9.4, Immature Gran % (Auto) 0.20, Immature Gran # (Auto) 0.02, Neutrophils % 73.3, Lymphocytes % 14.6 L, Monocytes % 8.2, Eosinophils % 3.1 H, Basophils % 0.6, Nucleated RBC % 0.0, Neutrophils # 6.1 H, Lymphocytes # 1.21 L, Monocytes # 0.7, Eosinophils # 0.3, Absolute Basophils 0.1 09/02/19 23:00: Sodium 143 H, Plasma Sodium 143 H, Potassium 4.6, Chloride 106, Carbon Dioxide 28.7, Anion Gap 12.9, BUN 55 H, Creatinine 1.72 H, Est GFR (Non- Af Amer) 41 L, BUN/Creatinine Ratio 32.0 H, Random Glucose 103, Calcium 8.7, Calcium Adj for Albumin 8.6, Total Bilirubin 0.6, AST 17, ALT 19, Alkaline Phosphatase 137, Total Protein 6.9, Albumin 3.7 09/02/19 23:00: Lactic Acid, Venous 0.7 09/02/19 23:04: Urine Color Yellow, Urine Appearance Slightly cloudy, Urine pH 5.5, Ur Specific [place] 1.025, Urine Protein 30 H, Urine Glucose (UA) Negative, Urine Ketones Negative, Urine Blood 10 H, Urine Nitrate Negative, Urine Bilirubin Negative, Prot Sulfosalicylic Acd 2+ H, Urine Urobilinogen Normal, Ur Leukocyte Esterase 25 H, Urine RBC 0-5, Urine WBC 5-10 H, Ur Epithelial Cells None seen, Ur Renal Epithelial Cell Moderate - 2+ H, Urine Bacteria 3+ H, Urine Culture Comments Culture to follow 09/03/19 00:16: B-Natriuretic Peptide 4459 H 09/03/19 15:12: Sodium 142, Plasma Sodium 142, Potassium 4.1, Chloride 105, Carbon Dioxide 27.8, Anion Gap 13.3, BUN 54 H, Creatinine 1.64 H, Est GFR (Non- Af Amer) 43 L, BUN/Creatinine Ratio 32.9 H, Random Glucose 123 H, Calcium 8.6, Calcium Adj for Albumin 8.6, Total Bilirubin 0.7, AST 22, ALT 19, Alkaline Phosphatase 140, Total Protein 6.9, Albumin 3.6 09/04/19 11:57: WBC 8.9, RBC 3.28 L, Hgb 10.2 L, Hct 31.2 L, MCV 95.1, MCH 31.1 H, MCHC 32.7, RDW 15.8 H, Plt Count 157, MPV 9.4, Immature Gran % (Auto) 0.20, Immature Gran # (Auto) 0.02, Neutrophils % 75.0, Lymphocytes % 11.7 L, Monocytes % 10.6 H, Eosinophils % 1.8, Basophils % 0.7, Nucleated RBC % 0.0, Neutrophils # 6.7 H, Lymphocytes # 1.04 L, Monocytes # 0.9, Eosinophils # 0.2, Absolute Basophils 0.1 09/04/19 11:57: Sodium 142, Plasma Sodium 143 H, Potassium 4.0, Chloride 105, Carbon Dioxide 28.2, Anion Gap 12.8, BUN 53 H, Creatinine 1.86 H, Est GFR (Non- Af Amer) 37 L, BUN/Creatinine Ratio 28.5 H, Random Glucose 134 H, Calcium 8.5, Calcium Adj for Albumin 8.7, Total Bilirubin 1.0, AST 18, ALT 16 L, Alkaline Phosphatase 123, Total Protein 6.4, Albumin 3.4 09/05/19 12:50: Ur Random Creatinine 168.1, U Random Total Protein 78.0 H, U [place] Prot/Creat Ratio 464 H 09/05/19 12:50: Urine Color Dark yellow, Urine Appearance Cloudy, Urine pH 5.0, Ur Specific [place] 1.025, Urine Protein 30 H, Urine Glucose (UA) Negative, Urine Ketones Negative, Urine Blood 250 H, Urine Nitrate Negative, Urine Bilirubin 1 H, Urine Ictotest Negative, Prot Sulfosalicylic Acd 2+ H, Urine Urobilinogen Normal, Ur Leukocyte Esterase 100 H, Urine RBC 25-50 H, Urine WBC 25-50 H, Ur Epithelial Cells 10-25 H, Urine Bacteria 3+ H, Hyaline Casts 10-25 H, Fine Granular Casts 0-5 H, Coarse Granular Casts 0-5 H, Urine Comment Culture ordered L 09/05/19 13:20: Total Bilirubin 1.0, Direct Bilirubin 0.6 H, Lactate Dehydrogenase 159, Creatine Kinase 100 09/05/19 15:05: Urine Color Dark yellow, Urine Appearance Slightly cloudy, Urine pH 5.0, Ur Specific [place] >=1.030, Urine Protein 15 H, Urine Glucose (UA) Negative, Urine Ketones 5, Urine Blood 250 H, Urine Nitrate Negative, Urine Bilirubin 1 H, Urine Ictotest Negative, Prot Sulfosalicylic Acd Negative, Urine Urobilinogen Normal, Ur Leukocyte Esterase 100 H, Urine RBC 25-50 H, Urine WBC 25-50 H, Ur Epithelial Cells 5-10 H, Urine Bacteria 3+ H, Hyaline Casts 0-5 H, Fine Granular Casts 0-5 H, Coarse Granular Casts 0-5 H, Urine Comment Culture ordered L 09/06/19 06:10: WBC 11.0 H D, RBC 3.13 L, Hgb 9.7 L, Hct 29.5 L, MCV 94.2, MCH 31.0, MCHC 32.9, RDW 15.5 H, Plt Count 150, MPV 9.5, Immature Gran % (Auto) 0.30, Immature Gran # (Auto) 0.03, Neutrophils % 78.8 H, Lymphocytes % 9.7 L, Monocytes % 10.0 H, Eosinophils % 0.8, Basophils % 0.4, Nucleated RBC % 0.0, Neutrophils # 8.7 H, Lymphocytes # 1.07 L, Monocytes # 1.1 H, Eosinophils # 0.1, Absolute Basophils 0.0 09/06/19 06:10: Sodium 136, Plasma Sodium 137, Potassium 5.0 H D, Chloride 101, Carbon Dioxide 28.1, Anion Gap 11.9, BUN 69 H, Creatinine 4.09 H D, Est GFR (Non-Af Amer) 15 L D, BUN/Creatinine Ratio 16.9, Random Glucose 132 H, Calcium 8.2, Calcium Adj for Albumin 8.7, Total Bilirubin 0.9, AST 11, ALT 13 L, Alkaline Phosphatase 111, B-Natriuretic Peptide 03015 H, Total Protein 6.1 L, Albumin 3.0 L Discharge Location: [facility] Disposition: Short Term Hospital Inpatient Condition: Fair Discharge Activity: Activity as tolerated Discharge Diet: Low salt Referrals: Juice Adan MD [Primary Care Provider] - Complete Home Medications List: Complete Home Medication List: fluocinolone 0.025 % topical cream 1 applic TP BID #120 g 08/13/18 ascorbic acid (vitamin C) 1,000 mg tablet 1 g PO DAILY #30 tab 08/23/18 beta carotene 30 mg capsule 30 mg PO DAILY #30 cap 08/23/18 fexofenadine 180 mg tablet 180 mg PO DAILY #30 tab 10/20/18 omega-3 fatty acids 1,000 mg capsule 1,000 mg PO DAILY #30 cap 10/20/18 omeprazole 40 mg capsule,delayed release 40 mg PO BID #180 cap 10/20/18 vitamin B complex 1 tab PO DAILY #30 tab 10/20/18 olopatadine 0.6 % nasal spray 2 spray MICHEAL BID #61 g 11/08/18 betamethasone valerate 0.1 % topical cream 1 applic TP BID #45 g 05/05/19 atenolol 50 mg tablet 50 mg PO BID #60 tab 08/23/19 clotrimazole 1 % topical solution 1 applic TP BID #30 ml 08/23/19 eplerenone 25 mg tablet 25 mg PO DAILY #30 tab 08/23/19 furosemide 80 mg tablet 80 mg PO DAILY #90 tab 08/23/19 losartan 100 mg tablet 100 mg PO DAILY #90 tab 08/23/19 minoxidil 10 mg tablet 20 mg PO BID #120 tab 08/23/19 prazosin 5 mg capsule 5 mg PO Q12H #180 cap 08/23/19 Acetaminophen 650 mg PO BID PRN 08/31/19 mupirocin 2 % topical ointment 1 applic TP BID #22 g 08/31/19
[2019-09-06] MEDS: FUROSEMIDE 10 MG/ML VIAL IV SCH (08:51)
[2019-09-06] MEDS: METOLAZONE 5 MG TABLET PO SCH (08:52)
[2019-09-06] MEDS ORDERED: MINOXIDIL 10 MG PO SCH (09:00)
--- NOTE | 2019-09-06 09:54 | DS ---
Transfer Discharge Summary - Diagnosis(s)/Problems (1) Acute renal failure Problem: Acute (2) Anasarca Problem: Acute (3) Scrotal swelling Problem: Acute (4) Edema Problem: Acute (5) Stasis dermatitis of both legs Problem: Acute (6) CHF (congestive heart failure) Problem: Chronic (7) Hyperlipidemia Problem: Chronic (8) Hypertension Problem: Chronic (9) Pannus, abdominal Problem: Chronic (10) Ulcers of both lower extremities, limited to breakdown of skin Problem: Chronic - Course Description of Stay: Mariano Shukla is a 79 yo male with past medical history of chronic renal failure stage III, hypertension, obstructive sleep apnea, congestive heart failure who was admitted on 09/03/2019 because of increasing swelling of his legs scrotum and abdomen. He recently has gained about 30 lbs and notices it in the legs, abdomen, and scrotum. He reports not urinating much. He reports his lasix dose was recently increased but he did not notice much improvement. He began having scrotal pain due to the swelling and presented to the [facility] ER. He was given 120mg of IV lasix and diuresed some in the ER. His chest x-ray showed mild pulmonary congestion, stable cardiomegaly. His BNP was elevated at 4840 and he did complain dyspnea of exertion and orthopnea. His echocardiogram in 2017 showed moderate show left ventricular hypertrophy ejection fraction of 68%, pseudo-normalization, RVSP of 51, IVC not dilated. The patient was admitted and was started on IV Lasix 80 mg IV every 6 hours by the network operations technician physician. With the first 2 days the patient diuresed a good amount of fluid however on the third day his urine output started going down. He was also started on Bactrim by the network operations technician physician because of a Klebsiella pneumonia urinary tract infectionon (on day 2 and received a total of 3 tablets). I changed his Lasix to twice a day but I added Zaroxolyn 1/2-hour before Lasix was given. His urine output was 200 mL the whole day yesterday to today. He also started having tea colored urine. His repeat urinalysis showed this blood and RBCs as well as WBCs and leukocyte esterase, fine and coarse granular cast as well as hyaline cast. While his acute renal failure was likely prerenal initially, acute interstitial nephritis/acute tubular necrosis was suspected and so Bactrim yesterday was stopped and IV Rocephin started. His random/spot urine protein to creatinine ratio was 464 mg/g. His CK was normal. Aldolase is pending. His lactate dehydrogenase was also normal and his indirect bilirubin was normal. His renal ultrasound showed no hydronephrosis. This morning the patient creatinine has bumped up to 4.09 from 1.72 on admission ( his Cr on 08/19/2019 was 1.34) and the patient is oliguric. His BNP this morning is also elevated at 12,096. We will transfer patient to the nearest facility with nephrology services available. Dr. Horan is accepting the patient . Procedures Performed: none - Results and Findings Results and Findings: Laboratory Results - last 24 hr 09/05/19 09/05/19 09/05/19 12:50 12:50 13:20 WBC RBC Hgb Hct MCV MCH MCHC RDW Plt Count MPV Immature Gran % (Auto) Immature Gran # (Auto) Neutrophils % Lymphocytes % Monocytes % Eosinophils % Basophils % Nucleated RBC % Neutrophils # Lymphocytes # Monocytes # Eosinophils # Absolute Basophils Sodium Plasma Sodium Potassium Chloride Carbon Dioxide Anion Gap BUN Creatinine Est GFR (Non-Af Amer) BUN/Creatinine Ratio Random Glucose Calcium Calcium Adj for Albumin Total Bilirubin 1.0 Direct Bilirubin 0.6 H AST ALT Alkaline Phosphatase Lactate Dehydrogenase 159 Creatine Kinase 100 B-Natriuretic Peptide Total Protein Albumin Urine Color Dark yellow Urine Appearance Cloudy Urine pH 5.0 Ur Specific [place] 1.025 Urine Protein 30 H Urine Glucose (UA) Negative Urine Ketones Negative Urine Blood 250 H Urine Nitrate Negative Urine Bilirubin 1 H Urine Ictotest Negative Prot Sulfosalicylic Acd 2+ H Urine Urobilinogen Normal Ur Leukocyte Esterase 100 H Urine RBC 25-50 H Urine WBC 25-50 H Ur Epithelial Cells 10-25 H Urine Bacteria 3+ H Hyaline Casts 10-25 H Fine Granular Casts 0-5 H Coarse Granular Casts 0-5 H Ur Random Creatinine 168.1 U Random Total Protein 78.0 H U [place] Prot/Creat Ratio 464 H Urine Comment Culture ordered L 09/05/19 09/06/19 09/06/19 15:05 06:10 06:10 WBC 11.0 H D RBC 3.13 L Hgb 9.7 L Hct 29.5 L MCV 94.2 MCH 31.0 MCHC 32.9 RDW 15.5 H Plt Count 150 MPV 9.5 Immature Gran % (Auto) 0.30 Immature Gran # (Auto) 0.03 Neutrophils % 78.8 H Lymphocytes % 9.7 L Monocytes % 10.0 H Eosinophils % 0.8 Basophils % 0.4 Nucleated RBC % 0.0 Neutrophils # 8.7 H Lymphocytes # 1.07 L Monocytes # 1.1 H Eosinophils # 0.1 Absolute Basophils 0.0 Sodium 136 Plasma Sodium 137 Potassium 5.0 H D Chloride 101 Carbon Dioxide 28.1 Anion Gap 11.9 BUN 69 H Creatinine 4.09 H D Est GFR (Non-Af Amer) 15 L D BUN/Creatinine Ratio 16.9 Random Glucose 132 H Calcium 8.2 Calcium Adj for Albumin 8.7 Total Bilirubin 0.9 Direct Bilirubin AST 11 ALT 13 L Alkaline Phosphatase 111 Lactate Dehydrogenase Creatine Kinase B-Natriuretic Peptide 26820 H Total Protein 6.1 L Albumin 3.0 L Urine Color Dark yellow Urine Appearance Slightly cloudy Urine pH 5.0 Ur Specific [place] >=1.030 Urine Protein 15 H Urine Glucose (UA) Negative Urine Ketones 5 Urine Blood 250 H Urine Nitrate Negative Urine Bilirubin 1 H Urine Ictotest Negative Prot Sulfosalicylic Acd Negative Urine Urobilinogen Normal Ur Leukocyte Esterase 100 H Urine RBC 25-50 H Urine WBC 25-50 H Ur Epithelial Cells 5-10 H Urine Bacteria 3+ H Hyaline Casts 0-5 H Fine Granular Casts 0-5 H Coarse Granular Casts 0-5 H Ur Random Creatinine U Random Total Protein U [place] Prot/Creat Ratio Urine Comment Culture ordered L - Medications Medications: Active Medications Acetaminophen (Tylenol) 650 mg PO BID PRN PRN Reason: Pain Last Admin: 09/05/19 03:20 Dose: 650 mg Documented by: Ascorbic Acid (Vitamin C) 1,000 mg PO DAILY RENNY Stop: 10/04/19 09:01 Last Admin: 09/06/19 08:21 Dose: 1,000 mg Documented by: Atenolol (Tenormin) 50 mg PO BID RENNY Stop: 10/03/19 13:16 Last Admin: 09/06/19 08:23 Dose: 50 mg Documented by: Betamethasone Valerate (Betamethasone Valerate Cream) 1 appl TP BID RENNY Stop: 10/03/19 21:01 Last Admin: 09/06/19 08:39 Dose: 1 appl Documented by: Furosemide (Lasix) 100 mg IV BID [facility] Stop: 10/05/19 09:01 Last Admin: 09/06/19 08:51 Dose: Not Given Documented by: Ceftriaxone Sodium 1,000 mg/ (Dextrose/Water) 100 mls @ 200 mls/hr IV Q24H [facility]; Protocol Stop: 10/05/19 11:16 Last Infusion: 09/05/19 12:55 Dose: Infused Documented by: Loratadine (Claritin) 10 mg PO DAILY [facility] Stop: 10/04/19 09:01 Last Admin: 09/06/19 08:21 Dose: 10 mg Documented by: Mupirocin (Bactroban) 1 appl TP BID [facility] Stop: 10/03/19 21:01 Last Admin: 09/06/19 08:20 Dose: 1 appl Documented by: Non-Formulary Medication (Beta-Carotene [Lumitene]) 30 mg PO DAILY [facility] Stop: 10/04/19 09:01 Last Admin: 09/06/19 08:35 Dose: 30 mg Documented by: Non-Formulary Medication (Eplerenone [Inspra]) 25 mg PO DAILY [facility] Stop: 10/03/19 13:16 Last Admin: 09/06/19 08:38 Dose: 25 mg Documented by: Non-Formulary Medication (Olopatadine Hcl [Patanase]) 2 spray NS BID [facility] Stop: 10/03/19 21:01 Last Admin: 09/06/19 08:36 Dose: Not Given Documented by: Minoxidil 10mg 2 dose PO BID [facility] Stop: 10/03/19 21:01 Last Admin: 09/06/19 09:03 Dose: 2 dose Documented by: Prazosin HCl (Minipress) 5 mg PO Q12H [facility] Stop: 10/03/19 13:16 Last Admin: 09/06/19 02:53 Dose: 5 mg Documented by: Tramadol HCl (Ultram) 50 mg PO Q6H PRN PRN Reason: Pain Stop: 10/05/19 08:28 Last Admin: 09/05/19 21:26 Dose: 50 mg Documented by: Discontinued Medications Acetaminophen (Tylenol) 650 mg PO ONCE ONE Stop: 09/03/19 01:39 Last Admin: 09/03/19 01:43 Dose: 650 mg Documented by: Atenolol (Tenormin) 50 mg PO ONCE ONE Stop: 09/03/19 01:38 Last Admin: 09/03/19 01:44 Dose: 50 mg Documented by: Furosemide (Lasix) 120 mg IV ONCE ONE Stop: 09/02/19 22:49 Last Admin: 09/02/19 23:02 Dose: 120 mg Documented by: Furosemide (Lasix) 80 mg IV ONCE ONE Stop: 09/03/19 08:47 Last Admin: 09/03/19 09:41 Dose: 80 mg Documented by: Furosemide (Lasix) 80 mg IV Q6H [facility] Stop: 10/03/19 15:01 Last Admin: 09/05/19 03:20 Dose: 80 mg Documented by: Losartan Potassium (Cozaar) 100 mg PO DAILY [facility] Stop: 10/03/19 13:16 Last Admin: 09/06/19 08:39 Dose: 100 mg Documented by: Metolazone (Zaroxolyn) 5 mg PO DAILY [facility] Stop: 10/05/19 09:01 Last Admin: 09/06/19 08:52 Dose: Not Given Documented by: Metolazone (Zaroxolyn) 5 mg PO ONCE ONE Stop: 09/05/19 21:01 Last Admin: 09/05/19 21:21 Dose: 5 mg Documented by: Minoxidil (Minoxidil) 10 mg PO DAILY [facility] Stop: 10/03/19 09:01 Last Admin: 09/03/19 15:34 Dose: 10 mg Documented by: Minoxidil (Minoxidil) 20 mg PO BID [facility] Stop: 10/03/19 21:01 Last Admin: 09/05/19 21:27 Dose: 20 mg Documented by: Minoxidil (Minoxidil) 10 mg PO ONCE ONE Stop: 09/03/19 13:46 Last Admin: 09/03/19 15:33 Dose: 10 mg Documented by: Nystatin (Mycostatin Cream) 1 appl TP ONCE ONE Stop: 09/03/19 00:13 Last Admin: 09/03/19 00:41 Dose: 1 appl Documented by: Pantoprazole Sodium (Protonix) 40 mg PO BID@0700,2100 [facility] Stop: 10/03/19 21:01 Last Admin: 09/06/19 08:20 Dose: 40 mg Documented by: Trimethoprim/Sulfamethoxazole (Bactrim Ds) 1 tab PO BID [facility]; Protocol Stop: 10/04/19 11:01 Last Admin: 09/05/19 09:25 Dose: 1 tab Documented by: - Disposition Disposition: Short Term Hospital Inpatient Condition: Fair Discharge Date: 09/06/19 Discharge Time: 10:00
[2019-09-06 12:55] VITALS: BP 84/52
[2019-09-07 12:21] LABS: Haptoglobin 130 mg/dL (43-212)
== END 2019-09-06 11:35 | disposition short-term general hospital (02) | DRG 729 ==
LOC: ER 21:27 → MS 21:27 → OBSVTOIN 09-03 00:46 → MS 09-03 01:57
PROVIDERS: ADMIT Family Medicine; ATTEND Internal Medicine
CPT/HCPCS: 36415; 71010; 71045; 76770; 80053; 81001; 82085; 82247; 82248; 82550; 82570; 83010; 83519; 83605; 83615; 83880; 84155; 84156; 85025; 87077; 87081; 87086; 87186; 96374; 99285

== ENCOUNTER 2019-09-19 06:38 | Inpatient (IN) ==
--- NOTE | 2019-09-19 07:05 | ERNOTE ---
<Johanny Ojeda - Last Filed: 09/19/19 08:12> Dyspnea - Date Date of Service: 09/19/19 - General Presenting Symptoms: shortness of breath, difficulty of breathing, wheezing Time Seen by Provider: 09/19/19 06:42 Source: patient Exam Limitations: hard of hearing, dementia - Immun/Allergies/Home Medications Immunizations: IMMUNIZATION HX Immunizations Up to Date Yes History of Influenza Vaccine Yes Hx Pneumococcal Vaccination Yes Allergies/Adverse Reactions: Allergies hydralazine [Hydralazine] Adverse Reaction (Intermediate, Verified 09/19/19 06:47) Nausea levofloxacin [From Levaquin] Adverse Reaction (Intermediate, Verified 09/19/19 06:47) feet swelling Home Medications: HOME MEDICATIONS fluocinolone 0.025 % topical cream 1 applic TP BID #120 g 08/13/18 [Last Taken Unknown] ascorbic acid (vitamin C) 1,000 mg tablet 1 g PO DAILY #30 tab 08/23/18 [Last Taken Unknown] beta carotene 30 mg capsule 30 mg PO DAILY #30 cap 08/23/18 [Last Taken Unknown] fexofenadine 180 mg tablet 180 mg PO DAILY #30 tab 10/20/18 [Last Taken Unknown] omega-3 fatty acids 1,000 mg capsule 1,000 mg PO DAILY #30 cap 10/20/18 [Last Taken Unknown] omeprazole 40 mg capsule,delayed release 40 mg PO BID #180 cap 10/20/18 [Last Taken Unknown] vitamin B complex 1 tab PO DAILY #30 tab 10/20/18 [Last Taken Unknown] olopatadine 0.6 % nasal spray 2 spray MICHEAL BID #61 g 11/08/18 [Last Taken Unknown] betamethasone valerate 0.1 % topical cream 1 applic TP BID #45 g 05/05/19 [Last Taken Unknown] atenolol 50 mg tablet 50 mg PO BID #60 tab 08/23/19 [Last Taken Unknown] clotrimazole 1 % topical solution 1 applic TP BID #30 ml 08/23/19 [Last Taken Unknown] eplerenone 25 mg tablet 25 mg PO DAILY #30 tab 08/23/19 [Last Taken Unknown] furosemide 80 mg tablet 80 mg PO DAILY #90 tab 08/23/19 [Last Taken Unknown] losartan 100 mg tablet 100 mg PO DAILY #90 tab 08/23/19 [Last Taken Unknown] minoxidil 10 mg tablet 20 mg PO BID #120 tab 08/23/19 [Last Taken Unknown] prazosin 5 mg capsule 5 mg PO Q12H #180 cap 08/23/19 [Last Taken Unknown] Acetaminophen 650 mg PO BID PRN 08/31/19 [Last Taken Unknown] mupirocin 2 % topical ointment 1 applic TP BID #22 g 08/31/19 [Last Taken Unknown] - History of Present Illness Narrative: Patient is a 79 years old male brought in by ambulance from [facility] for shortness of breath. Patient was recently hospitalized at [facility] for renal failure secondary to antibiotic intake. He was discharged to rehab due to deconditioning. Patient is on Lasix for heart failure and on home oxygen at 2 L up to 5 L to maintain saturation above 88%. The [facility] reports that patient has been requiring more oxygen in the last couple of days and being more short of breath. At 4: am20 this morning patient was trying to take his oxygen out so they gave him 0.5 mg of lorazepam to calm him down, consequently he became more confused and this is when they decided to send him to the ER. 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 Denies: fever/chills, chest pain/discomfort, palpitations, dizziness, lightheadedness Review of Systems - Review of Systems Constitutional: Absent: fever ENT: Absent: ear pain Respiratory: Present: shortness of breath Cardiology: Absent: chest pain Gastrointestinal/Abdominal: Absent: nausea, constipation Neurological: Present: other - confusion Medical History (Last Reviewed 09/19/19 @ 07:50 by Johanny Ojeda MD) Edema (Acute) improving Gastroesophageal reflux disease (Chronic) Hypertension (Chronic) Ankle fracture Onset Date: Unknown Ingrown nail Onset Date: ~09/23/13 Aortic insufficiency Onset Date: Unknown Mild to moderate aortic insufficiency with well preserved left ventricular function BPH (benign prostatic hyperplasia) Onset Date: Unknown Cholecystitis Onset Date: Unknown Cholelithiasis Onset Date: Unknown DJD (degenerative joint disease), multiple sites Onset Date: Unknown Erectile dysfunction Onset Date: Unknown History of gastroesophageal reflux (GERD) Onset Date: ~05/27/11 Hypertension Onset Date: ~05/24/11 Obesity Onset Date: Unknown Obstructive sleep apnea Onset Date: Unknown refuses to wear cpap Pneumonia Onset Date: Unknown Pulmonary hypertension Onset Date: Unknown felt to be secondary to sleep apnea Rhinitis Onset Date: Unknown Vitamin D deficiency Onset Date: Unknown Surgical History: Surgical History (Last Reviewed 09/19/19 @ 07:50 by Johanny Ojeda MD) H/O adenoidectomy Onset Date: Unknown as a teenager H/O colonoscopy Onset Date: ~02/11/05 with biopsy Tinguely; scattered sigmoid diverticulosis. Left colon polyp History of appendectomy Onset Date: Unknown History of esophagogastroduodenoscopy (EGD) Onset Date: ~02/11/05 Tinguely; irritation/inflammation History of laparoscopic cholecystectomy Onset Date: ~04/11/10 Tinguely; with cholangiography History of tonsillectomy Onset Date: Unknown as a teenager Skin lesion Onset Date: ~06/16/14 [place]; Multiple around neck Family History: Family History (Last Reviewed 09/19/19 @ 07:50 by Johanny Ojeda MD) Father , age 70 Myocardial infarction Mother , age 78 Heart disease Social History: (Last Reviewed 09/19/19 @ 07:50 by Johanny Ojeda MD) Social History: adopted: No retirement: No Marital status: / lives independently: Yes household members: none current occupational status: retired Highest education level completed: 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: occupat Service: Yes branch: [employer] Tobacco: Smoking Status: Former smoker how long ago did patient quit smoking: age 40's Alcohol: alcohol intake: former Substance Use: substance use type: does not use Dietary Habits: caffeine: Yes Physical Exam - Physical Exam General Appearance: Present: alert, mild distress Head Exam: Present: normal inspection Eye Exam: Normal inspection: bilateral Ears, Nose, Throat: Present: normal ENT inspection Neck: Present: normal inspection Respiratory: Present: decreased breath sounds Cardiovascular/Chest: Present: regular rate, rhythm Peripheral Pulses: N=norm/S=strong/W=weak/B=bound/A=absent: Radial (R): Normal, Radial (L): Normal Gastrointestinal/Abdominal: Present: normal bowel sounds Back Exam: Present: normal inspection Extremity Exam: Present: normal inspection Skin Exam: Present: warm/dry Lymphatic Exam: Present: no adenopathy Progress - Vital Signs Vital Signs: Vital Signs 09/19/19 06:42 Temperature 36.6 C Pulse Rate 75 Respiratory Rate 35 H Blood Pressure 167/82 H O2 Sat by Pulse Oximetry 97 - Transfer of Care Physician Sign Out: Johanny Ojeda Receiving Physician: Karri Cody Expected Disposition: Admit Departure Clinical Impression: SOB (shortness of breath) CHF (congestive heart failure) Qualifiers: Heart failure type: unspecified Heart failure chronicity: acute on chronic Qualified Code(s): I50.9 - Heart failure, unspecified - Departure Disposition: Still a patient Condition: Fair Referrals: Juice Adan MD [Primary Care Provider] - <Karri Cody - Last Filed: 09/19/19 09:22> Dyspnea - Immun/Allergies/Home Medications Immunizations: IMMUNIZATION HX Immunizations Up to Date Yes History of Influenza Vaccine Yes Hx Pneumococcal Vaccination Yes Medical History (Last Reviewed 09/19/19 @ 07:50 by Johanny Ojeda MD) Edema (Acute) improving Gastroesophageal reflux disease (Chronic) Hypertension (Chronic) Ankle fracture Onset Date: Unknown Ingrown nail Onset Date: ~09/23/13 Aortic insufficiency Onset Date: Unknown Mild to moderate aortic insufficiency with well preserved left ventricular function BPH (benign prostatic hyperplasia) Onset Date: Unknown Cholecystitis Onset Date: Unknown Cholelithiasis Onset Date: Unknown DJD (degenerative joint disease), multiple sites Onset Date: Unknown Erectile dysfunction Onset Date: Unknown History of gastroesophageal reflux (GERD) Onset Date: ~05/27/11 Hypertension Onset Date: ~05/24/11 Obesity Onset Date: Unknown Obstructive sleep apnea Onset Date: Unknown refuses to wear cpap Pneumonia Onset Date: Unknown Pulmonary hypertension Onset Date: Unknown felt to be secondary to sleep apnea Rhinitis Onset Date: Unknown Vitamin D deficiency Onset Date: Unknown Surgical History: Surgical History (Last Reviewed 09/19/19 @ 07:50 by Johanny Ojeda MD) H/O adenoidectomy Onset Date: Unknown as a teenager H/O colonoscopy Onset Date: ~02/11/05 with biopsy Tinguely; scattered sigmoid diverticulosis. Left colon polyp History of appendectomy Onset Date: Unknown History of esophagogastroduodenoscopy (EGD) Onset Date: ~02/11/05 Tinguely; irritation/inflammation History of laparoscopic cholecystectomy Onset Date: ~04/11/10 Tinguely; with cholangiography History of tonsillectomy Onset Date: Unknown as a teenager Skin lesion Onset Date: ~06/16/14 [place]; Multiple around neck Family History: Family History (Last Reviewed 09/19/19 @ 07:50 by Johanny Ojeda MD) Father , age 70 Myocardial infarction Mother , age 78 Heart disease Social History: (Last Reviewed 09/19/19 @ 07:50 by Johanny Ojeda MD) Social History: adopted: No retirement: No Marital status: / lives independently: Yes household members: none current occupational status: retired Highest education level completed: 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: occupat Service: Yes branch: [employer] Tobacco: Smoking Status: Former smoker how long ago did patient quit smoking: age 40's Alcohol: alcohol intake: former Substance Use: substance use type: does not use Dietary Habits: caffeine: Yes Progress - Results and Orders Patient's Lab Results:: I have reviewed the patient's lab results. - Vital Signs Patient's Vital Signs:: I have reviewed the patient's vital signs. Vital Signs: Vital Signs 09/19/19 06:42 09/19/19 06:47 09/19/19 07:16 Temperature 36.6 C Pulse Rate 75 82 84 Respiratory Rate 35 H 20 Blood Pressure 167/82 H 168/77 H O2 Sat by Pulse Oximetry 97 95 09/19/19 07:30 09/19/19 08:00 09/19/19 08:30 Temperature Pulse Rate 89 90 83 Respiratory Rate 14 40 H 35 H Blood Pressure 179/80 H 172/88 H 173/94 H O2 Sat by Pulse Oximetry 96 97 90 L 09/19/19 09:00 09/19/19 09:02 Temperature Pulse Rate 88 85 Respiratory Rate 21 H Blood Pressure 176/85 H 176/85 H O2 Sat by Pulse Oximetry 95 - EKG EKG #1 EKG: atrial fibrillation - X-Ray X-Ray #1 X-Ray: chest Interpretation: Reviewed by me Plan - Plan Plan: Patient appears to be in congestive heart failure. I suspect that the troponin leak, as well as a lactate, have been secondary to some hypoxia at the retirement where he resides. Patient was given 80 mg of Lasix here in the emergency department and Dr. Agornyo has agreed to admit to follow the troponins, likely get another echocardiogram and make sure that his oxygen stays in a reasonable range.
[2019-09-19 07:13] LABS: Hematocrit 36.1 % (42.0-52.0); Hemoglobin 11.8 gm/dL (13.5-18.0); Mean Cell Volume 94.5 fl (78-100); Mean Corpuscular Hemoglobin 30.9 pg (27-31); Mean Corpuscular Hgb Conc 32.7 g/dl (32-36); Mean Platelet Volume 10.3 fl (8-11.3); NRBC# 0.1 k/mm3 (0-1); Neutrophil # 10.7 K/mm3 (1.3-6.0); Platelet Count 264 K/mm3 (150-450); Red Blood Count 3.82 M/mm3 (4.7-6.0); Red Cell Distribution Width 17.2 % (11.5-14.0); White Blood Count 13.9 K/mm3 (4.0-10.5)
[2019-09-19 07:20] LABS: Venous Blood Gas HCO3 27.8 mmol/L (22.0-29.0); Venous Blood Gas pH 7.49 (7.32-7.43)
[2019-09-19 07:33] LABS: INR 2.84 INR (0.92-1.08)
[2019-09-19] MEDS ORDERED: NORMAL SALINE 1,000 ML IV ONE (07:38)
[2019-09-19 07:55] LABS: ALT 101 U/L (19-67); AST 121 U/L (0-48); Albumin * 3.7 gm/dl (3.4-5.0); Alkaline Phosphatase * 131 U/L (50-170); Anion Gap 15.1 mmol/L (6.8-13.8); BNP * Greater than 35000 pg/mL (5-650); BUN/Creatinine Ratio 31.9 (9.0-21.6); Bilirubin, Total 2.5 mg/dL (0.0-1.1); Blood Urea Nitrogen 59 mg/dL (6-23); CK Total * 109 U/L (0-259); CKMB 1.6 ng/mL (0.0-9.0); Calcium * 9.1 mg/dL (7.9-10.9); Carbon Dioxide 30.1 mmol/L (24-32.6); Chloride 103 mmol/L (97-106); Glucose * 125 mg/dL (70-110); Potassium 3.2 mmol/L (3.4-4.6); Sodium 145 mmol/L (132-142); Total Protein 7.5 gm/dL (6.2-8.2)
[2019-09-19 07:56] LABS: Troponin I 0.274 ng/mL (0.00-0.10)
[2019-09-19 08:24] LABS: Urine Bilirubin 1 mg/dl (NEGATIVE); Urine Ketone Negative (NEGATIVE); Urine Nitrite Negative (NEGATIVE); Urine Protein 100 mg/dL (NEGATIVE); Urine Specific Gravity 1.025 SP.GR. (1.005-1.030); Urine Urobilinogen Normal (NORMAL); Urine pH 5.5 pH (5.0-7.0)
[2019-09-19 08:30] LABS: Urine Appearance Slightly Cloudy (CLEAR); Urine Bacteria TRACE; Urine Blood 5 /ul (NEGATIVE); Urine Color Dark Yellow; Urine RBC 0-5 /hpf (0-5)
[2019-09-19] MEDS ORDERED: FUROSEMIDE 10 MG/ML VIAL IV ONE (08:52)
[2019-09-19] MEDS ORDERED: ACETAMINOPHEN 650 MG TABLET PO PRN (10:32)
[2019-09-19] MEDS ORDERED: CALCIUM CARBONATE 500 MG TAB.CHEW PO PRN (10:32)
[2019-09-19] MEDS: ATENOLOL 25 MG TABLET PO SCH (11:05)
[2019-09-19] MEDS: amLODIPine BESYLATE 5 MG TABLET PO SCH (11:05)
--- NOTE | 2019-09-19 12:47 | HP ---
Chief Complaint - Chief Complaint Date of Service: 09/19/19 Time of Service: 09:04 Chief Complaint: Shortness of breath History of Present Illness: 79-year-old male with a past medical history of obesity, BPH, GERD, hypertension, obstructive sleep apnea refuses to wear CPAP, CKD 3, pulmonary hypertension likely secondary to sleep apnea, congestive heart failure, [facility] with complaints of shortness of breath. Patient had a recent hospitalization at [facility] for renal failure secondary to antibiotic use. He was discharged to the [facility] for rehab. He is chronically on Lasix 60 mg twice a day for his congestive heart failure. Per the custodial the patient was agitated this early this morning around 4 AM today and was given a dose of lorazepam 0.5 mg to calm him down. He began to become more confused and was sent to the emergency department. In the ED he was found to be hypertensive with a blood pressure 160/66, tachypneic with respiration rate of 25 and he required. Labs are positive for hypokalemia of 3.2, lactic acid of 2.4, troponin of 0.274 and BNP greater than 35,000. Chest x-ray was positive for cardiomegaly and interstitial edema. He received 1 dose of Lasix 80 mg IV in the emergency department. He has been asked admitted for CHF exacerbation. Medical History (Last Reviewed 09/19/19 @ 12:54 by Regine Padilla RN) Edema (Acute) improving Gastroesophageal reflux disease (Chronic) Hypertension (Acute) Ankle fracture Onset Date: Unknown Ingrown nail Onset Date: ~09/23/13 Aortic insufficiency Onset Date: Unknown Mild to moderate aortic insufficiency with well preserved left ventricular function BPH (benign prostatic hyperplasia) Onset Date: Unknown Cholecystitis Onset Date: Unknown Cholelithiasis Onset Date: Unknown DJD (degenerative joint disease), multiple sites Onset Date: Unknown Erectile dysfunction Onset Date: Unknown History of gastroesophageal reflux (GERD) Onset Date: ~05/27/11 Hypertension Onset Date: ~05/24/11 Obesity Onset Date: Unknown Obstructive sleep apnea Onset Date: Unknown refuses to wear cpap Pneumonia Onset Date: Unknown Pulmonary hypertension Onset Date: Unknown felt to be secondary to sleep apnea Rhinitis Onset Date: Unknown Vitamin D deficiency Onset Date: Unknown Surgical History: Surgical History (Last Reviewed 09/19/19 @ 12:54 by Regine Padilla RN) H/O adenoidectomy Onset Date: Unknown as a teenager H/O colonoscopy Onset Date: ~02/11/05 with biopsy Tinguely; scattered sigmoid diverticulosis. Left colon polyp History of appendectomy Onset Date: Unknown History of esophagogastroduodenoscopy (EGD) Onset Date: ~02/11/05 Tinguely; irritation/inflammation History of laparoscopic cholecystectomy Onset Date: ~04/11/10 Tinguely; with cholangiography History of tonsillectomy Onset Date: Unknown as a teenager Skin lesion Onset Date: ~06/16/14 [place]; Multiple around neck Family History: Family History (Last Reviewed 09/19/19 @ 12:54 by Regine Padilla RN) Father , age 70 Myocardial infarction Mother , age 78 Heart disease Social History: (Last Reviewed 09/19/19 @ 12:54 by Regine Padilla RN) Social History: adopted: No custodial: No Marital status: / lives independently: Yes household members: none current occupational status: retired Highest education level completed: 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: occupat Service: Yes branch: [employer] Tobacco: Smoking Status: Former smoker how long ago did patient quit smoking: age 40's Alcohol: alcohol intake: former Substance Use: substance use type: does not use Dietary Habits: caffeine: Yes Review Of Systems (GEN) - Review of Systems Generalized/Overall Review: Absent: Fever Respiratory: Present: Shortness of Breath Cardiac: Present: Edema. Absent: Chest Pain Abdominal: Absent: Abdominal Pain Misc: All systems neg except as marked Immunizations: IMMUNIZATION HX Immunizations Up to Date Yes History of Influenza Vaccine Yes Hx Pneumococcal Vaccination Yes Allergies/Adverse Reactions: Allergies Allergy/AdvReac Type Severity Reaction Status Date / Time hydralazine [Hydralazine] AdvReac Intermediate Nausea Verified 09/19/19 06:47 levofloxacin [From Levaquin] AdvReac Intermediate feet Verified 09/19/19 06:47 swelling Home Medications: HOME MEDICATIONS fluocinolone 0.025 % topical cream 1 applic TP BID #120 g 08/13/18 [Last Taken 09/18/19 20:00] fexofenadine 180 mg tablet 180 mg PO DAILY #30 tab 10/20/18 [Last Taken 09/18/19 08:00] omega-3 fatty acids 1,000 mg capsule 1,000 mg PO DAILY #30 cap 10/20/18 [Last Taken 09/18/19 08:00] omeprazole 40 mg capsule,delayed release 40 mg PO BID #180 cap 10/20/18 [Last Taken 09/18/19 08:00] vitamin B complex 1 tab PO DAILY #30 tab 10/20/18 [Last Taken 09/18/19 08:00] betamethasone valerate 0.1 % topical cream 1 applic TP BID #45 g 05/05/19 [Last Taken 09/18/19] Acetaminophen 650 mg PO BID PRN 08/31/19 [Last Taken 09/17/19 19:24] mupirocin 2 % topical ointment 1 applic TP BID #22 g 08/31/19 [Last Taken 09/18/19] Allopurinol [Zyloprim (Allopurinol)] 100 mg PO DAILY 09/19/19 [Last Taken 09/18/19 08:00] Amlodipine Besylate 5 mg PO DAILY 09/19/19 [Last Taken 09/18/19 08:00] Ascorbic Acid [Vitamin C] 1,000 mg PO DAILY 09/19/19 [Last Taken 09/18/19 08:00] Atenolol [Tenormin] 25 mg PO DAILY 09/19/19 [Last Taken 09/18/19 08:00] Beta-Carotene [Beta Carotene] 4 cap PO DAILY 09/19/19 [Last Taken 09/18/19 08:00] Bisacodyl [Laxative] 2 tab PO DAILY PRN 09/19/19 [Last Taken 09/17/19 08:50] Calcium Carbonate [Calcium Antacid] 500 mg PO TID PRN 09/19/19 [Last Taken 09/17/19 19:25] Clotrimazole [Lotrimin Cream] 1 appl TOPICAL BID 09/19/19 [Last Taken 09/18/19] Colchicine 0.6 mg PO DAILY 09/19/19 [Last Taken 09/18/19 08:00] Ferrous Sulfate 325 mg PO BID 09/19/19 [Last Taken 09/18/19 20:00] Furosemide [Lasix] 60 mg PO BID 09/19/19 [Last Taken 09/18/19 16:00] Potassium Chloride [Klor-Con M20] 2 tab PO DAILY 09/19/19 [Last Taken 09/18/19 16:00] Saliva Stimulant Agents Comb.3 [Biotene Moisturizing Mouth] 1 spray MM TID PRN 09/19/19 [Last Taken 09/15/19 19:54] Warfarin Sodium [Jantoven] 4 mg PO DAILY 09/19/19 [Last Taken 09/18/19 20:00] Exam - Exam Vital Signs: Vital Signs - Last Taken Temp 36.6 C 09/19/19 10:19 Pulse 85 09/19/19 11:05 Resp 21 H 09/19/19 10:19 BP 160/66 H 09/19/19 11:05 Pulse Ox 95 09/19/19 10:19 Constitutional: Present: Alert, Cooperative, Well developed, Well nourished, No distress, Lethargic, Elderly. Absent: Acute distress ENT Exam: Present: hearing grossly normal Eye Exam: bilateral eye: normal inspection, PERRL Neck: Present: non-tender. Absent: lymphadenopathy (R), lymphadenopathy (L) Back Exam: Present: normal inspection, no CVA tenderness Respiratory: Present: no accessory muscle use, crackles - Bilateral lung bases, No wheezing. Absent: rhonchi Cardiovascular/Chest: Present: normal peripheral pulses, no murmur, irregularly irregular, edema - 2+ pitting bilateral lower extremities Peripheral Pulses: dorsalis-pedis (R): 1+, dorsalis-pedis (L): 1+ Abdomen: Present: Normal bowel sounds, soft, nontender, obese Extremity: Present: lower extremity edema - 2+ pitting bilateral lower ext remities Skin Exam: Present: normal color, warm/dry Neurologic: Present: alert Appearance: Present: appropriate appearance Eye contact: Present: cooperative. Absent: good eye contact Thoughts: Present: normal mood /affect Diagnostic Studies: Abnormal Lab Results 09/19/19 09/19/19 09/19/19 Range/Units 07:03 07:03 07:03 WBC 13.9 H (4.0-10.5) K/mm3 RBC 3.82 L (4.7-6.0) M/mm3 Hgb 11.8 L (13.5-18.0) gm/dL Hct 36.1 L (42.0-52.0) % RDW 17.2 H (11.5-14.0) % Immature Gran % (Auto) 0.80 H (0.001-0.429) % Immature Gran # (Auto) 0.11 H (0.000-0.0310) K/mm3 Neutrophils % 77.0 H (42-75.0) % Lymphocytes % 14.0 L (20-51) % Neutrophils # 10.7 H (1.3-6.0) K/mm3 PT 27.0 H (9.1-10.7) Seconds INR (Anticoag Therapy) 2.84 H (0.92-1.08) INR pO2 (23.3-35.1) mmHg Total CO2 (22.0-26.0) mmol/L Base Excess (-2.0-3.0) mmol/L ABG pH (7.32-7.43) VBG O2 Saturation (94.0-98.0) % Sodium 145 H (132-142) mmol/L Plasma Sodium 145 H (130-142) mmol/L Potassium 3.2 L (3.4-4.6) mmol/L Anion Gap 15.1 H (6.8-13.8) mmol/L BUN 59 H (6-23) mg/dL Creatinine 1.85 H (0.4-1.4) mg/dL Est GFR (Non-Af Amer) 38 L (60-130) mL/min BUN/Creatinine Ratio 31.9 H (9.0-21.6) Random Glucose 125 H (70-110) mg/dL Lactic Acid, Venous (0.4-2.0) mmol/L Total Bilirubin 2.5 H (0.0-1.1) mg/dL AST 121 H (0-48) U/L ALT 101 H (19-67) U/L Troponin I 0.274 H* (0.00-0.10) ng/mL B-Natriuretic Peptide Greater [place] 35362 H (5-650) pg/mL Urine Protein (NEGATIVE) mg/dL Urine Blood (NEGATIVE) /ul Urine Bilirubin (NEGATIVE) mg/dl Urine Ictotest (NEGATIVE) Prot Sulfosalicylic Acd (0) mg/dL Ur Leukocyte Esterase (NEGATIVE) /ul Urine WBC (0-5) /hpf 09/19/19 09/19/19 09/19/19 Range/Units 07:03 07:03 10:55 WBC (4.0-10.5) K/mm3 RBC (4.7-6.0) M/mm3 Hgb (13.5-18.0) gm/dL Hct (42.0-52.0) % RDW (11.5-14.0) % Immature Gran % (Auto) (0.001-0.429) % Immature Gran # (Auto) (0.000-0.0310) K/mm3 Neutrophils % (42-75.0) % Lymphocytes % (20-51) % Neutrophils # (1.3-6.0) K/mm3 PT (9.1-10.7) Seconds INR (Anticoag Therapy) (0.92-1.08) INR pO2 37.4 H (23.3-35.1) mmHg Total CO2 28.9 H (22.0-26.0) mmol/L Base Excess 4.4 H (-2.0-3.0) mmol/L ABG pH 7.49 H (7.32-7.43) VBG O2 Saturation 76.3 L (94.0-98.0) % Sodium (132-142) mmol/L Plasma Sodium (130-142) mmol/L Potassium (3.4-4.6) mmol/L Anion Gap (6.8-13.8) mmol/L BUN (6-23) mg/dL Creatinine (0.4-1.4) mg/dL Est GFR (Non-Af Amer) (60-130) mL/min BUN/Creatinine Ratio (9.0-21.6) Random Glucose (70-110) mg/dL Lactic Acid, Venous 2.4 H* 3.9 H* (0.4-2.0) mmol/L Total Bilirubin (0.0-1.1) mg/dL AST (0-48) U/L ALT (19-67) U/L Troponin I (0.00-0.10) ng/mL B-Natriuretic Peptide (5-650) pg/mL Urine Protein (NEGATIVE) mg/dL Urine Blood (NEGATIVE) /ul Urine Bilirubin (NEGATIVE) mg/dl Urine Ictotest (NEGATIVE) Prot Sulfosalicylic Acd (0) mg/dL Ur Leukocyte Esterase (NEGATIVE) /ul Urine WBC (0-5) /hpf 09/19/ Range/Units Unknown WBC (4.0-10.5) K/mm3 RBC (4.7-6.0) M/mm3 Hgb (13.5-18.0) gm/dL Hct (42.0-52.0) % RDW (11.5-14.0) % Immature Gran % (Auto) (0.001-0.429) % Immature Gran # (Auto) (0.000-0.0310) K/mm3 Neutrophils % (42-75.0) % Lymphocytes % (20-51) % Neutrophils # (1.3-6.0) K/mm3 PT (9.1-10.7) Seconds INR (Anticoag Therapy) (0.92-1.08) INR pO2 (23.3-35.1) mmHg Total CO2 (22.0-26.0) mmol/L Base Excess (-2.0-3.0) mmol/L ABG pH (7.32-7.43) VBG O2 Saturation (94.0-98.0) % Sodium (132-142) mmol/L Plasma Sodium (130-142) mmol/L Potassium (3.4-4.6) mmol/L Anion Gap (6.8-13.8) mmol/L BUN (6-23) mg/dL Creatinine (0.4-1.4) mg/dL Est GFR (Non-Af Amer) (60-130) mL/min BUN/Creatinine Ratio (9.0-21.6) Random Glucose (70-110) mg/dL Lactic Acid, Venous (0.4-2.0) mmol/L Total Bilirubin (0.0-1.1) mg/dL AST (0-48) U/L ALT (19-67) U/L Troponin I (0.00-0.10) ng/mL B-Natriuretic Peptide (5-650) pg/mL Urine Protein 100 H (NEGATIVE) mg/dL Urine Blood 5 H (NEGATIVE) /ul Urine Bilirubin 1 H (NEGATIVE) mg/dl Urine Ictotest Positive H (NEGATIVE) Prot Sulfosalicylic Acd 4+ H (0) mg/dL Ur Leukocyte Esterase 25 H (NEGATIVE) /ul Urine WBC 5-10 H (0-5) /hpf Laboratory Results WBC 13.9 K/mm3 (4.0-10.5) H 09/19/19 07:03 RBC 3.82 M/mm3 (4.7-6.0) L 09/19/19 07:03 Hgb 11.8 gm/dL (13.5-18.0) L 09/19/19 07:03 Hct 36.1 % (42.0-52.0) L 09/19/19 07:03 MCV 94.5 fl (78-100) 09/19/19 07:03 MCH 30.9 pg (27-31) 09/19/19 07:03 MCHC 32.7 g/dl (32-36) 09/19/19 07:03 RDW 17.2 % (11.5-14.0) H 09/19/19 07:03 Plt Count 264 K/mm3 (150-450) 09/19/19 07:03 MPV 10.3 fl (8-11.3) 09/19/19 07:03 Immature Gran % (Auto) 0.80 % (0.001-0.429) H 09/19/19 07:03 Immature Gran # (Auto) 0.11 K/mm3 (0.000-0.0310) H 09/19/19 07:03 Neutrophils % 77.0 % (42-75.0) H 09/19/19 07:03 Lymphocytes % 14.0 % (20-51) L 09/19/19 07:03 Monocytes % 7.2 % (0.0-9) 09/19/19 07:03 Eosinophils % 0.5 % (0.0-3.0) 09/19/19 07:03 Basophils % 0.5 % (0.0-1.0) 09/19/19 07:03 Nucleated RBC % 0.1 k/mm3 (0-1) 09/19/19 07:03 Neutrophils # 10.7 K/mm3 (1.3-6.0) H 09/19/19 07:03 Lymphocytes # 1.94 k/mm3 (1.5-3.5) 09/19/19 07:03 Monocytes # 1.0 k/mm3 (0.0-1.0) 09/19/19 07:03 Eosinophils # 0.1 k/mm3 (0.0-0.7) 09/19/19 07:03 Absolute Basophils 0.1 k/mm3 (0.0-0.1) 09/19/19 07:03 PT 27.0 Seconds (9.1-10.7) H 09/19/19 07:03 INR (Anticoag Therapy) 2.84 INR (0.92-1.08) H 09/19/19 07:03 pCO2 37.0 mmHg (35.0-48.0) 09/19/19 07:03 pO2 37.4 mmHg (23.3-35.1) H 09/19/19 07:03 HCO3 27.8 mmol/L (22.0-29.0) 09/19/19 07:03 Total CO2 28.9 mmol/L (22.0-26.0) H 09/19/19 07:03 Base Excess 4.4 mmol/L (-2.0-3.0) H 09/19/19 07:03 ABG pH 7.49 (7.32-7.43) H 09/19/19 07:03 VBG O2 Saturation 76.3 % (94.0-98.0) L 09/19/19 07:03 Sodium 145 mmol/L (132-142) H 09/19/19 07:03 Plasma Sodium 145 mmol/L (130-142) H 09/19/19 07:03 Potassium 3.2 mmol/L (3.4-4.6) L 09/19/19 07:03 Chloride 103 mmol/L (97-106) 09/19/19 07:03 Carbon Dioxide 30.1 mmol/L (24-32.6) 09/19/19 07:03 Anion Gap 15.1 mmol/L (6.8-13.8) H 09/19/19 07:03 BUN 59 mg/dL (6-23) H 09/19/19 07:03 Creatinine 1.85 mg/dL (0.4-1.4) H 09/19/19 07:03 Est GFR (Non-Af Amer) 38 mL/min (60-130) L 09/19/19 07:03 BUN/Creatinine Ratio 31.9 (9.0-21.6) H 09/19/19 07:03 Random Glucose 125 mg/dL (70-110) H 09/19/19 07:03 Lactic Acid, Venous 3.9 mmol/L (0.4-2.0) H* 09/19/19 10:55 Calcium 9.1 mg/dL (7.9-10.9) 09/19/19 07:03 Calcium Adj for Albumin 9.0 mg/dL (8.4-10.2) 09/19/19 07:03 Total Bilirubin 2.5 mg/dL (0.0-1.1) H 09/19/19 07:03 AST 121 U/L (0-48) H 09/19/19 07:03 ALT 101 U/L (19-67) H 09/19/19 07:03 Alkaline Phosphatase 131 U/L (50-170) 09/19/19 07:03 Creatine Kinase 109 U/L (0-259) 09/19/19 07:03 CK-MB (CK-2) 1.6 ng/mL (0.0-9.0) 09/19/19 07:03 CK-MB (CK-2) Rel Index 1.5 (0.0-3.6) 09/19/19 07:03 Troponin I 0.274 ng/mL (0.00-0.10) H* 09/19/19 07:03 B-Natriuretic Peptide Greater [place] 97319 pg/mL (5-650) H 09/19/19 07:03 Total Protein 7.5 gm/dL (6.2-8.2) 09/19/19 07:03 Albumin 3.7 gm/dl (3.4-5.0) 09/19/19 07:03 Procalcitonin 0.21 ng/mL (0.05-0.50) 09/19/19 07:03 Urine Color Dark yellow 09/19/19 Unknown Urine Appearance Slightly cloudy (CLEAR) 09/19/19 Unknown Urine pH 5.5 pH (5.0-7.0) 09/19/19 Unknown Ur Specific [place] 1.025 SP.GR. (1.005-1.030) 09/19/19 Unknown Urine Protein 100 mg/dL (NEGATIVE) H 09/19/19 Unknown Urine Glucose (UA) Negative mg/dL (NEGATIVE) 09/19/19 Unknown Urine Ketones Negative mg/dL (NEGATIVE) 09/19/19 Unknown Urine Blood 5 /ul (NEGATIVE) H 09/19/19 Unknown Urine Nitrate Negative (NEGATIVE) 09/19/19 Unknown Urine Bilirubin 1 mg/dl (NEGATIVE) H 09/19/19 Unknown Urine Ictotest Positive (NEGATIVE) H 09/19/19 Unknown Prot Sulfosalicylic Acd 4+ mg/dL (0) H 09/19/19 Unknown Urine Urobilinogen Normal EU/dl (NORMAL) 09/19/19 Unknown Ur Leukocyte Esterase 25 /ul (NEGATIVE) H 09/19/19 Unknown Urine RBC 0-5 /hpf (0-5) 09/19/19 Unknown Urine WBC 5-10 /hpf (0-5) H 09/19/19 Unknown Ur Epithelial Cells 0-5 /hpf (0-5) 09/19/19 Unknown Urine Bacteria Trace (NONE) 09/19/19 Unknown Urine Culture Comments Culture to follow 09/19/19 Unknown Assessment/Plan - Narrative Narrative: 79-year-old male with a past medical history of obesity, BPH, GERD, hypertension, CKD 3, obstructive sleep apnea refuses to wear CPAP, pulmonary hypertension likely secondary to sleep apnea, congestive heart failure, presents from the [facility] with complaints of shortness of breath. Patient had a recent hospitalization at [facility] for renal failure secondary to antibiotic use. He was discharged to the [facility] for rehab. He is chronically on Lasix 60 mg twice a day for his congestive heart failure. Per the custodial the patient was agitated this early this morning around 4 AM today and was given a dose of lorazepam 0.5 mg to calm him down. He began to become more confused and was sent to the emergency department. In the ED he was found to be hypertensive with a blood pressure 160/66, tachypneic with respiration rate of 25 and he required. Labs are positive for hypokalemia of 3.2, lactic acid of 2.4, troponin of 0.274 and BNP greater than 35,000. Chest x-ray was positive for cardiomegaly and interstitial edema. He received 1 dose of Lasix 80 mg IV in the emergency department. He has been asked admitted for CHF exacerbation. Plan #1 continue with diuresis for CHF. Give Lasix 80 mg IV for 2 more doses. He is status post 1 dose in the emergency department. #2 strict I's and O's and low-salt diet #3 trend troponins, elevation likely secondary to CHF exacerbation. #4 monitor vitals #5 resume home medications for comorbidities #6 probable UTI start ceftriaxone IV 1 g every 24 hours #7 I have spoken with the patient's daughter Aldo Florence and she is aware of the declining condition her father is currently in. #8 at baseline the patient is A&O x3 but over the past few days his mentation has worsened and he is very confused. It appears that he has a UTI. I will treat him with ceftriaxone in hopes to improve his mentation. - Assessment/Plan (1) CHF (congestive heart failure) Problem: Acute Qualifiers: Heart failure type: diastolic Heart failure chronicity: acute on chronic Qualified Code(s): I50.33 - Acute on chronic diastolic (congestive) heart failure (2) CKD (chronic kidney disease) stage 3, GFR 30-59 ml/min Problem: Chronic (3) Edema extremities Problem: Acute (4) CHF (congestive heart failure) Problem: Chronic Qualifiers: Heart failure type: diastolic Heart failure chronicity: acute on chronic Qualified Code(s): I50.33 - Acute on chronic diastolic (congestive) heart failure (5) Gastroesophageal reflux disease Problem: Chronic Qualifiers: (6) Hypertension Problem: Acute Qualifiers: Hypertension type: essential hypertension Qualified Code(s): I10 - Essential (primary) hypertension (7) Acute metabolic encephalopathy Problem: Acute
[2019-09-19] MEDS: POTASSIUM CHLORIDE 20 MEQ TABLET.SA PO SCH ×2 (13:16→17:32)
[2019-09-19] MEDS: FUROSEMIDE 10 MG/ML VIAL IV SCH ×2 (13:52→20:03)
[2019-09-19] MEDS: WARFARIN SODIUM 4 MG TABLET PO SCH (17:31)
[2019-09-19] MEDS ORDERED: LISINOPRIL 5 MG TABLET ONE (18:47)
[2019-09-19] MEDS: LISINOPRIL 2.5 MG TABLET PO SCH (18:49)
[2019-09-19] MEDS: PANTOPRAZOLE SODIUM 40 MG TABLET.EC PO SCH (20:03)
[2019-09-19] MEDS: BETAMETHASONE VALERATE 15 APPL TUBE TP SCH (20:03)
[2019-09-20] MEDS: PANTOPRAZOLE SODIUM 40 MG TABLET.EC PO SCH ×2 (06:32→20:22)
[2019-09-20 06:40] LABS: Hematocrit 39.2 % (42.0-52.0); Hemoglobin 12.7 gm/dL (13.5-18.0); Mean Cell Volume 96.1 fl (78-100); Mean Corpuscular Hemoglobin 31.1 pg (27-31); Mean Corpuscular Hgb Conc 32.4 g/dl (32-36); NRBC# 0.1 k/mm3 (0-1); Neutrophil # 11.8 K/mm3 (1.3-6.0); Neutrophil % 79.1 % (42-75.0); Platelet Count 247 K/mm3 (150-450); Red Blood Count 4.08 M/mm3 (4.7-6.0); White Blood Count 14.9 K/mm3 (4.0-10.5)
[2019-09-20 06:55] LABS: Albumin * 3.6 gm/dl (3.4-5.0); Anion Gap 13.7 mmol/L (6.8-13.8); BUN/Creatinine Ratio 36.8 (9.0-21.6); Bilirubin, Total 1.9 mg/dL (0.0-1.1); Carbon Dioxide 29.1 mmol/L (24-32.6); Potassium 3.8 mmol/L (3.4-4.6); Total Protein 7.5 gm/dL (6.2-8.2)
[2019-09-20 08:47] LABS: Prothrombin Time (Patient) 27.8 Seconds (9.1-10.7)
[2019-09-20 08:48] LABS: INR 2.93 INR (0.92-1.08)
[2019-09-20] MEDS ORDERED: POTASSIUM CHLORIDE 20 MEQ TABLET.SA PO SCH (09:00)
[2019-09-20] MEDS: BETAMETHASONE VALERATE 15 APPL TUBE TP SCH ×2 (09:30→20:19)
[2019-09-20] MEDS: LORATADINE 10 MG TABLET PO SCH (09:31)
[2019-09-20] MEDS: COLCHICINE 0.6 MG TABLET PO SCH (09:32)
[2019-09-20] MEDS: FERROUS SULFATE 325 MG TABLET PO SCH (09:32)
[2019-09-20] MEDS: amLODIPine BESYLATE 5 MG TABLET PO SCH (09:33)
[2019-09-20] MEDS: ATENOLOL 25 MG TABLET PO SCH (09:34)
[2019-09-20] MEDS: LISINOPRIL 2.5 MG TABLET PO SCH (09:35)
--- NOTE | 2019-09-20 10:21 | PN ---
Subjective - Date and Time Seen Date: 09/20/19 Time: 09:39 Subjective Narrative: He states he feels better today. Denies shortness of breath, chest pain or abdominal pain. Denies pain with urination. He is alert and oriented x2 to person and time. Objective - Review of Systems Generalized/Overall Review: Denies: Fever Respiratory: Denies: Shortness of Breath Cardiac: Denies: Chest Pain, Edema Abdominal: Denies: Abdominal Pain Misc: All systems neg except as marked - Vitals Vitals: Last Vital Signs Temp 36.4 C 09/20/19 10:01 Pulse 74 09/20/19 10:01 Resp 18 09/20/19 10:01 BP 135/56 09/20/19 10:01 Pulse Ox 93 09/20/19 10:01 - Abnormal Lab Findings Abnormal Lab Findings: Abnormal Lab Results 09/19/19 09/19/19 09/20/19 Range/Units 10:55 23:30 06:27 WBC (4.0-10.5) K/mm3 RBC (4.7-6.0) M/mm3 Hgb (13.5-18.0) gm/dL Hct (42.0-52.0) % MCH (27-31) pg RDW (11.5-14.0) % Immature Gran % (Auto) (0.001-0.429) % Immature Gran # (Auto) (0.000-0.0310) K/mm3 Neutrophils % (42-75.0) % Lymphocytes % (20-51) % Neutrophils # (1.3-6.0) K/mm3 PT 27.8 H (9.1-10.7) Seconds INR (Anticoag Therapy) 2.93 H (0.92-1.08) INR pCO2 28.0 L (35.0-48.0) mmHg pO2 80.1 L (83.0-108.0) mmHg Total CO2 24.6 H (19.0-24.0) mmol/L ABG pH 7.55 H (7.35-7.45) Sodium (132-142) mmol/L Plasma Sodium (130-142) mmol/L BUN (6-23) mg/dL Creatinine (0.4-1.4) mg/dL Est GFR (Non-Af Amer) (60-130) mL/min BUN/Creatinine Ratio (9.0-21.6) Random Glucose (70-110) mg/dL Lactic Acid, Venous 3.9 H* (0.4-2.0) mmol/L Total Bilirubin (0.0-1.1) mg/dL AST (0-48) U/L ALT (19-67) U/L 09/20/19 09/20/19 Range/Units 06:30 06:30 WBC 14.9 H (4.0-10.5) K/mm3 RBC 4.08 L (4.7-6.0) M/mm3 Hgb 12.7 L (13.5-18.0) gm/dL Hct 39.2 L (42.0-52.0) % MCH 31.1 H (27-31) pg RDW 18.0 H (11.5-14.0) % Immature Gran % (Auto) 0.90 H (0.001-0.429) % Immature Gran # (Auto) 0.13 H (0.000-0.0310) K/mm3 Neutrophils % 79.1 H (42-75.0) % Lymphocytes % 12.4 L (20-51) % Neutrophils # 11.8 H (1.3-6.0) K/mm3 PT (9.1-10.7) Seconds INR (Anticoag Therapy) (0.92-1.08) INR pCO2 (35.0-48.0) mmHg pO2 (83.0-108.0) mmHg Total CO2 (19.0-24.0) mmol/L ABG pH (7.35-7.45) Sodium 144 H (132-142) mmol/L Plasma Sodium 144 H (130-142) mmol/L BUN 71 H (6-23) mg/dL Creatinine 1.93 H (0.4-1.4) mg/dL Est GFR (Non-Af Amer) 36 L (60-130) mL/min BUN/Creatinine Ratio 36.8 H (9.0-21.6) Random Glucose 124 H (70-110) mg/dL Lactic Acid, Venous (0.4-2.0) mmol/L Total Bilirubin 1.9 H (0.0-1.1) mg/dL AST 108 H (0-48) U/L ALT 103 H (19-67) U/L - Exam Constitutional: Present: Alert, Cooperative, Well developed, Well nourished, Elderly. Absent: Oriented x3 ENT Exam: Present: hearing grossly normal Neck: Present: non-tender, supple. Absent: lymphadenopathy (R), lymphadenopathy (L) Respiratory: Present: lungs clear, no accessory muscle use, No wheezing. Absent: crackles Cardiovascular/Chest: Present: normal peripheral pulses, no edema, systolic murmur, irregularly irregular Abdomen: Present: Normal bowel sounds, soft, nontender, obese Extremity: Present: no pedal edema Skin Exam: Present: normal color, warm/dry, other - Venous stasis changes noted in bilateral lower extremities Neurologic: Present: alert Appearance: Present: appropriate appearance. Absent: appropriate insight Eye contact: Present: cooperative Thoughts: Absent: normal thought pattern Assessment/Plan Plan Narrative: 79-year-old male with a past medical history of obesity, BPH, GERD, hypertension, CKD 3, obstructive sleep apnea refuses to wear CPAP, pulmonary hypertension likely secondary to sleep apnea, congestive heart failure, presents from the [facility] with complaints of shortness of breath. Patient had a recent hospitalization at [facility] for renal failure secondary to antibiotic use. He was discharged to the [facility] for rehab. He is chronically on Lasix 60 mg twice a day for his congestive heart failure. Per the custodial the patient was agitated this early this morning around 4 AM today and was given a dose of lorazepam 0.5 mg to calm him down. He began to become more confused and was sent to the emergency department. In the ED he was found to be hypertensive with a blood pressure 160/66, tachypneic with respiration rate of 25 and he required. Labs are positive for hypokalemia of 3.2, lactic acid of 2.4, troponin of 0.274 and BNP greater than 35,000. Chest x-ray was positive for cardiomegaly and interstitial edema. He received 1 dose of Lasix 80 mg IV in the emergency department. He has been asked admitted for CHF exacerbation. His lower extremity edema has improved significantly and he has been adequately diuresed. On discharge I think his dose of Lasix may need to be increased from 60 mg twice a day to possibly 80 or 100 mg twice a day. His Lasix dose was decreased in few days prior to presentation in the custodial. He continues to be confused today. Plan #1 He has had good urine output and has lost 1.5 kg of fluid In the past 24 hours. He has received 3 doses of Lasix 80 mg IV. I will resume him on oral Lasix. #2 strict I's and O's and low-salt diet, and fluid restriction #3 Elevated troponins, elevation likely secondary to CHF exacerbation versus CKD. #4 monitor vitals, admit to inpatient status, he is on Coumadin for VTE prophylaxis. #5 resume home medications for comorbidities #6 Gram-negative bacilli growing on urine culture continue with ceftriaxone IV 1 g every 24 hours day 2 #7 I have spoken with the patient's daughter Aldo Florence and she is aware of the declining condition her father is currently in. We have discussed possibility of hospice for her father. She is working with the welfare case worker to determine his discharge disposition. One of the nurses from hospice will visit with the patient and family tomorrow morning. #8 at baseline the patient is A&O x3 but over the past few days his mentation has worsened and he is very confused. I am not sure whether or not he has underlying dementia. His daughter states he has no history of it but his sister had dementia. I am hoping his mentation will improve with treatment of the UTI. - Problems/Diagnosis (1) CHF (congestive heart failure) Problem: Acute Qualifiers: Heart failure type: diastolic Heart failure chronicity: acute on chronic Qualified Code(s): I50.33 - Acute on chronic diastolic (congestive) heart failure (2) CKD (chronic kidney disease) stage 3, GFR 30-59 ml/min Problem: Chronic (3) Edema extremities Problem: Acute (4) CHF (congestive heart failure) Problem: Chronic Qualifiers: Heart failure type: diastolic Heart failure chronicity: acute on chronic Qualified Code(s): I50.33 - Acute on chronic diastolic (congestive) heart failure (5) Gastroesophageal reflux disease Problem: Chronic Qualifiers: (6) Hypertension Problem: Acute Qualifiers: Hypertension type: essential hypertension Qualified Code(s): I10 - Essential (primary) hypertension (7) Acute metabolic encephalopathy Problem: Acute (8) UTI (urinary tract infection), bacterial Problem: Acute
[2019-09-20] MEDS: WARFARIN SODIUM 4 MG TABLET PO SCH (17:27)
[2019-09-20] MEDS: FUROSEMIDE 20 MG TABLET PO SCH (20:21)
[2019-09-21 06:30] LABS: Hematocrit 39.4 % (42.0-52.0); Hemoglobin 12.5 gm/dL (13.5-18.0); Mean Corpuscular Hemoglobin 30.8 pg (27-31); Mean Corpuscular Hgb Conc 31.7 g/dl (32-36); Mean Platelet Volume 10.3 fl (8-11.3); Neutrophil # 10.2 K/mm3 (1.3-6.0); Neutrophil % 77.9 % (42-75.0); Platelet Count 226 K/mm3 (150-450); Red Blood Count 4.06 M/mm3 (4.7-6.0); Red Cell Distribution Width 18.8 % (11.5-14.0); White Blood Count 13.1 K/mm3 (4.0-10.5)
[2019-09-21 06:36] LABS: INR 2.51 INR (0.92-1.08)
[2019-09-21 06:41] LABS: Albumin * 3.7 gm/dl (3.4-5.0); Anion Gap 13.5 mmol/L (6.8-13.8); BUN/Creatinine Ratio 39.6 (9.0-21.6); Bilirubin, Total 1.6 mg/dL (0.0-1.1); Ca. Corrected For Albumin 8.7 mg/dL (8.4-10.2); Calcium * 8.8 mg/dL (7.9-10.9); Carbon Dioxide 33.2 mmol/L (24-32.6); Potassium 2.7 mmol/L (3.4-4.6); Total Protein 7.5 gm/dL (6.2-8.2)
[2019-09-21] MEDS: PANTOPRAZOLE SODIUM 40 MG TABLET.EC PO SCH ×2 (06:47→21:48)
[2019-09-21] MEDS: BETAMETHASONE VALERATE 15 APPL TUBE TP SCH ×2 (08:40→21:46)
[2019-09-21] MEDS: FERROUS SULFATE 325 MG TABLET PO SCH (08:41)
[2019-09-21] MEDS: amLODIPine BESYLATE 5 MG TABLET PO SCH (08:41)
[2019-09-21] MEDS: FUROSEMIDE 20 MG TABLET PO SCH ×2 (08:41→21:47)
[2019-09-21] MEDS: ATENOLOL 25 MG TABLET PO SCH (08:41)
[2019-09-21] MEDS: COLCHICINE 0.6 MG TABLET PO SCH (08:41)
[2019-09-21] MEDS: LORATADINE 10 MG TABLET PO SCH (08:41)
[2019-09-21] MEDS: LISINOPRIL 2.5 MG TABLET PO SCH (08:42)
[2019-09-21] MEDS: ALLOPURINOL 100 MG TABLET PO SCH (09:08)
[2019-09-21] MEDS: CIPROFLOXACIN HCL 500 MG TABLET PO SCH ×2 (09:59→21:47)
[2019-09-21] MEDS: POTASSIUM CHLORIDE 20 MEQ TABLET.SA PO SCH ×2 (14:17→17:21)
[2019-09-21] MEDS: WARFARIN SODIUM 4 MG TABLET PO SCH (17:21)
--- NOTE | 2019-09-21 18:49 | PN ---
Subjective - Date and Time Seen Date: 09/21/19 Time: 12:30 Subjective Narrative: Mariano reports feeling better. Swelling in legs is doing well. Urine is growing pseudomonas. Family agreed to speak with hospice today and met with Catherine Oakley of [facility]. Objective - Vitals Vitals: Last Vital Signs Temp 36.4 C 09/21/19 18:08 Pulse 62 09/21/19 18:08 Resp 18 09/21/19 18:08 BP 158/66 H 09/21/19 18:08 Pulse Ox 100 09/21/19 18:08 - Abnormal Lab Findings Abnormal Lab Findings: Abnormal Lab Results 09/21/19 09/21/19 09/21/19 Range/Units 06:15 06:15 06:15 WBC 13.1 H (4.0-10.5) K/mm3 RBC 4.06 L (4.7-6.0) M/mm3 Hgb 12.5 L (13.5-18.0) gm/dL Hct 39.4 L (42.0-52.0) % MCHC 31.7 L (32-36) g/dl RDW 18.8 H (11.5-14.0) % Immature Gran % (Auto) 0.80 H (0.001-0.429) % Immature Gran # (Auto) 0.11 H (0.000-0.0310) K/mm3 Neutrophils % 77.9 H (42-75.0) % Lymphocytes % 11.5 L (20-51) % Neutrophils # 10.2 H (1.3-6.0) K/mm3 PT 24.0 H (9.1-10.7) Seconds INR (Anticoag Therapy) 2.51 H (0.92-1.08) INR Sodium 149 H (132-142) mmol/L Plasma Sodium 149 H (130-142) mmol/L Potassium 2.7 L D (3.4-4.6) mmol/L Carbon Dioxide 33.2 H (24-32.6) mmol/L BUN 59 H (6-23) mg/dL Creatinine 1.49 H D (0.4-1.4) mg/dL Est GFR (Non-Af Amer) 48 L D (60-130) mL/min BUN/Creatinine Ratio 39.6 H (9.0-21.6) Total Bilirubin 1.6 H (0.0-1.1) mg/dL AST 92 H (0-48) U/L ALT 99 H (19-67) U/L - Exam Constitutional: Present: Alert, Oriented x3, Cooperative, No distress ENT Exam: Present: hearing grossly normal Respiratory: Present: lungs clear, normal breath sounds Cardiovascular/Chest: Present: regular rate, rhythm, no edema, systolic murmur - 2+ Abdomen: Present: Normal bowel sounds, soft, nontender Skin Exam: Present: normal color, warm/dry, no cyanosis Assessment/Plan Plan Narrative: Overall Acute on chronic diastolic CHF is improving and he is adequately diuresed. Potassium is low at 2.7 will replace. Urine growing pseudomonas, based on cultures will start Cipro 500mg BID. Met with hospice today and they are planning to discharge to [facility] hospice in two days once potassium is corrected and doing well on UTI treatment. - Problems/Diagnosis (1) Hypokalemia Problem: Acute (2) UTI (urinary tract infection), bacterial Problem: Acute (3) CHF (congestive heart failure) Problem: Chronic Qualifiers: Heart failure type: diastolic Heart failure chronicity: acute on chronic Qualified Code(s): I50.33 - Acute on chronic diastolic (congestive) heart failure (4) CKD (chronic kidney disease) stage 3, GFR 30-59 ml/min Problem: Chronic
[2019-09-22 06:37] LABS: Prothrombin Time (Patient) 24.3 Seconds (9.1-10.7)
[2019-09-22 06:38] LABS: INR 2.54 INR (0.92-1.08)
[2019-09-22] MEDS: PANTOPRAZOLE SODIUM 40 MG TABLET.EC PO SCH ×2 (06:56→21:20)
[2019-09-22] MEDS: ATENOLOL 25 MG TABLET PO SCH (08:46)
[2019-09-22] MEDS: FUROSEMIDE 20 MG TABLET PO SCH ×2 (08:47→21:20)
[2019-09-22] MEDS: LISINOPRIL 2.5 MG TABLET PO SCH (08:47)
[2019-09-22] MEDS: LORATADINE 10 MG TABLET PO SCH (08:48)
[2019-09-22] MEDS: ALLOPURINOL 100 MG TABLET PO SCH (08:48)
[2019-09-22] MEDS: FERROUS SULFATE 325 MG TABLET PO SCH (08:48)
[2019-09-22] MEDS: POTASSIUM CHLORIDE 20 MEQ TABLET.SA PO SCH ×2 (08:49→16:18)
[2019-09-22] MEDS: COLCHICINE 0.6 MG TABLET PO SCH (08:49)
[2019-09-22] MEDS: amLODIPine BESYLATE 5 MG TABLET PO SCH (08:50)
[2019-09-22] MEDS: BETAMETHASONE VALERATE 15 APPL TUBE TP SCH ×2 (08:50→21:19)
[2019-09-22] MEDS: CIPROFLOXACIN HCL 500 MG TABLET PO SCH ×2 (08:51→21:19)
[2019-09-22] MEDS: WARFARIN SODIUM 4 MG TABLET PO SCH (16:18)
--- NOTE | 2019-09-22 23:23 | PN ---
Subjective - Date and Time Seen Date: 09/22/19 Time: 11:00 Subjective Narrative: Mariano reports doing well today. He appreciates drinking more fluid as his fluid restrictions were removed as he is now hospice. He reports pain is controlled. No fever, chills, nausea, or vomiting. Swelling is doing well. Objective - Vitals Vitals: Last Vital Signs Temp 36.8 C 09/22/19 18:43 Pulse 80 09/22/19 21:20 Resp 18 09/22/19 18:43 BP 145/65 09/22/19 21:20 Pulse Ox 98 09/22/19 19:27 - Abnormal Lab Findings Abnormal Lab Findings: Abnormal Lab Results 09/22/19 Range/Units 06:00 PT 24.3 H (9.1-10.7) Seconds INR (Anticoag Therapy) 2.54 H (0.92-1.08) INR - Exam Constitutional: Present: Alert, Oriented x3, Cooperative ENT Exam: Present: hearing grossly normal Respiratory: Present: lungs clear, normal breath sounds Cardiovascular/Chest: Present: regular rate, rhythm, no murmur Abdomen: Present: Normal bowel sounds, soft Extremity: Absent: lower extremity edema Skin Exam: Present: normal color, warm/dry, no cyanosis Appearance: Present: appropriate appearance, appropriate insight Eye contact: Present: cooperative, good eye contact, normal speech Assessment/Plan Plan Narrative: Continue antibiotics for pseudomonas UTI. Will recheck potassium tomorrow. Plan to discharge to [facility] tomorrow. Overall feeling well. - Problems/Diagnosis (1) Hypokalemia Problem: Acute (2) UTI (urinary tract infection), bacterial Problem: Acute (3) CHF (congestive heart failure) Problem: Chronic Qualifiers: Heart failure type: diastolic Heart failure chronicity: acute on chronic Qualified Code(s): I50.33 - Acute on chronic diastolic (congestive) heart failure (4) CKD (chronic kidney disease) stage 3, GFR 30-59 ml/min Problem: Chronic
[2019-09-23 06:30] LABS: Hematocrit 40.3 % (42.0-52.0); Hemoglobin 12.7 gm/dL (13.5-18.0); Mean Cell Volume 98.3 fl (78-100); Mean Corpuscular Hgb Conc 31.5 g/dl (32-36); Mean Platelet Volume 11.4 fl (8-11.3); Neutrophil # 8.1 K/mm3 (1.3-6.0); Neutrophil % 75.1 % (42-75.0); Platelet Count 203 K/mm3 (150-450); Red Cell Distribution Width 19.5 % (11.5-14.0); White Blood Count 10.7 K/mm3 (4.0-10.5)
[2019-09-23 06:35] LABS: Prothrombin Time (Patient) 23.8 Seconds (9.1-10.7)
[2019-09-23 06:36] LABS: INR 2.49 INR (0.92-1.08)
[2019-09-23 06:44] LABS: Albumin * 3.4 gm/dl (3.4-5.0); Anion Gap 12.5 mmol/L (6.8-13.8); BUN/Creatinine Ratio 25.5 (9.0-21.6); Bilirubin, Total 1.4 mg/dL (0.0-1.1); Ca. Corrected For Albumin 8.6 mg/dL (8.4-10.2); Calcium * 8.4 mg/dL (7.9-10.9); Carbon Dioxide 30.3 mmol/L (24-32.6); Potassium 3.8 mmol/L (3.4-4.6); Total Protein 6.8 gm/dL (6.2-8.2)
[2019-09-23] MEDS: PANTOPRAZOLE SODIUM 40 MG TABLET.EC PO SCH (07:05)
[2019-09-23] MEDS: LORATADINE 10 MG TABLET PO SCH (08:18)
[2019-09-23] MEDS: COLCHICINE 0.6 MG TABLET PO SCH (08:18)
[2019-09-23] MEDS: BETAMETHASONE VALERATE 15 APPL TUBE TP SCH (08:18)
[2019-09-23] MEDS: FERROUS SULFATE 325 MG TABLET PO SCH (08:19)
[2019-09-23] MEDS: CIPROFLOXACIN HCL 500 MG TABLET PO SCH (08:19)
[2019-09-23] MEDS: LISINOPRIL 2.5 MG TABLET PO SCH (08:19)
[2019-09-23] MEDS: amLODIPine BESYLATE 5 MG TABLET PO SCH (08:19)
[2019-09-23] MEDS: FUROSEMIDE 20 MG TABLET PO SCH (08:19)
[2019-09-23] MEDS: ALLOPURINOL 100 MG TABLET PO SCH (08:20)
[2019-09-23] MEDS: ATENOLOL 25 MG TABLET PO SCH (08:20)
--- NOTE | 2019-09-23 09:06 | DS ---
(1) Acute metabolic encephalopathy Diagnosis(s): Mariano is a 79 yo male that was admitted with acute metabolic encephalopathy. This was thought to be multifactorial from renal failure, respiratory failure, and UTI. With treatment for each condition this was resolved and mentation improved to baseline. Problem: Resolved (2) Pseudomonas urinary tract infection Diagnosis(s): UA was suspicious initially of UTI. He was started on Rocephin, but culture returned growing pseudomonas. Antibiotics changed to Cipro based on sensitivity. Problem: Acute (3) Hypokalemia Diagnosis(s): Potassium low at 2.7, this was replaced and normal at discharge. He will be continued on potassium replacement to balance his diuretics. Problem: Resolved (4) CHF (congestive heart failure) Diagnosis(s): He was diuresed and improved. Will continue on oral lasix. He does qualify for hospice due to chronic diastolic CHF, however he has recently improved. Hospice was consulted and met with the family. They will consider hospice in the future, but at this time as he has improved we will hold off on admitting him to hospice. He will go the [facility] for strengthening with the plan to go to [facility] once he is strong enough for assisted living. Problem: Chronic Qualifiers: Heart failure type: diastolic Heart failure chronicity: acute on chronic Qualified Code(s): I50.33 - Acute on chronic diastolic (congestive) heart failure (5) CKD (chronic kidney disease) stage 3, GFR 30-59 ml/min Diagnosis(s): Elevated creatinine initially, this improved with staying hydrated and creatinine improved to baseline even with continued oral lasix twice a day. Problem: Chronic (6) Acute worsening of stage 3 chronic kidney disease Problem: Resolved (7) Lower extremity edema Problem: Acute (8) Acute and chronic respiratory failure Diagnosis(s): Due to acute on chronic diastolic CHF. This improved with diuresis. He chronically uses oxygen at night. In the hospital he was using it continuous, but with diuresis he was able to be weaned off of oxygen during the day. He will be sent to the snf with oxygen to use 2lpm at bedtime and may use during the day as needed to keep oxygen sats >89%. Problem: Resolved Qualifiers: Respiratory failure complication: hypoxia Qualified Code(s): J96.21 - Acute and chronic respiratory failure with hypoxia (9) Weakness Diagnosis(s): Will admit to [facility] for SNF with PT and OT for strengthening. Once strong enough to be more independent he plans to move to [facility]. Problem: Acute (10) Obstructive sleep apnea Problem: Chronic Date of Discharge:: 09/23/19 Procedures Performed: none Results and Findings: Pending Mircobiology Results 09/19/19 07:45 Blood Blood Culture - Preliminary NO GROWTH AFTER 48 HOURS 09/19/19 07:03 Blood Blood Culture - Preliminary NO GROWTH AFTER 48 HOURS Lab Pending Results 09/19/19 07:03: WBC 13.9 H, RBC 3.82 L, Hgb 11.8 L, Hct 36.1 L, MCV 94.5, MCH 30.9, MCHC 32.7, RDW 17.2 H, Plt Count 264, MPV 10.3, Immature Gran % (Auto) 0.80 H, Immature Gran # (Auto) 0.11 H, Neutrophils % 77.0 H, Lymphocytes % 14.0 L, Monocytes % 7.2, Eosinophils % 0.5, Basophils % 0.5, Nucleated RBC % 0.1, Neutrophils # 10.7 H, Lymphocytes # 1.94, Monocytes # 1.0, Eosinophils # 0.1, Absolute Basophils 0.1 09/19/19 07:03: Sodium 145 H, Plasma Sodium 145 H, Potassium 3.2 L, Chloride 103, Carbon Dioxide 30.1, Anion Gap 15.1 H, BUN 59 H, Creatinine 1.85 H, Est GFR (Non-Af Amer) 38 L, BUN/Creatinine Ratio 31.9 H, Random Glucose 125 H, Calcium 9.1, Calcium Adj for Albumin 9.0, Total Bilirubin 2.5 H, AST 121 H, ALT 101 H, Alkaline Phosphatase 131, Creatine Kinase 109, CK-MB (CK-2) 1.6, CK-MB (CK-2) Rel Index 1.5, Troponin I 0.274 H*, B-Natriuretic Peptide [place] [address] H, Total Protein 7.5, Albumin 3.7 09/19/19 07:03: PT 27.0 H, INR (Anticoag Therapy) 2.84 H 09/19/19 07:03: Lactic Acid, Venous 2.4 H* 09/19/19 07:03: Procalcitonin 0.21 09/19/19 07:03: pCO2 37.0, pO2 37.4 H, HCO3 27.8, Total CO2 28.9 H, Base Excess 4.4 H, ABG pH 7.49 H, VBG O2 Saturation 76.3 L 09/19/19 10:55: Lactic Acid, Venous 3.9 H* 09/19/19 23:30: pCO2 28.0 L, pO2 80.1 L, HCO3 23.7, Total CO2 24.6 H, Base Excess 2.1, ABG pH 7.55 H, ABG O2 Sat (Measured) 97.2 09/19/19 : Urine Color Dark yellow, Urine Appearance Slightly cloudy, Urine pH 5.5, Ur Specific [place] 1.025, Urine Protein 100 H, Urine Glucose (UA) Negative, Urine Ketones Negative, Urine Blood 5 H, Urine Nitrate Negative, Urine Bilirubin 1 H, Urine Ictotest Positive H, Prot Sulfosalicylic Acd 4+ H, Urine Urobilinogen Normal, Ur Leukocyte Esterase 25 H, Urine RBC 0-5, Urine WBC 5-10 H, Ur Epithelial Cells 0-5, Urine Bacteria Trace, Urine Culture Comments Culture to follow 09/20/19 06:27: PT 27.8 H, INR (Anticoag Therapy) 2.93 H 09/20/19 06:30: WBC 14.9 H, RBC 4.08 L, Hgb 12.7 L, Hct 39.2 L, MCV 96.1, MCH 31.1 H, MCHC 32.4, RDW 18.0 H, Plt Count 247, MPV 11.0, Immature Gran % (Auto) 0.90 H, Immature Gran # (Auto) 0.13 H, Neutrophils % 79.1 H, Lymphocytes % 12.4 L, Monocytes % 6.5, Eosinophils % 0.8, Basophils % 0.3, Nucleated RBC % 0.1, Neutrophils # 11.8 H, Lymphocytes # 1.85, Monocytes # 1.0, Eosinophils # 0.1, Absolute Basophils 0.1 09/20/19 06:30: Sodium 144 H, Plasma Sodium 144 H, Potassium 3.8, Chloride 105, Carbon Dioxide 29.1, Anion Gap 13.7, BUN 71 H, Creatinine 1.93 H, Est GFR (Non- Af Amer) 36 L, BUN/Creatinine Ratio 36.8 H, Random Glucose 124 H, Calcium 9.0, Calcium Adj for Albumin 9.0, Total Bilirubin 1.9 H, AST 108 H, ALT 103 H, Alkaline Phosphatase 132, Total Protein 7.5, Albumin 3.6 09/20/19 06:30: Lactic Acid, Venous 2.0 09/21/19 06:15: PT 24.0 H, INR (Anticoag Therapy) 2.51 H 09/21/19 06:15: WBC 13.1 H, RBC 4.06 L, Hgb 12.5 L, Hct 39.4 L, MCV 97.0, MCH 30.8, MCHC 31.7 L, RDW 18.8 H, Plt Count 226, MPV 10.3, Immature Gran % (Auto) 0.80 H, Immature Gran # (Auto) 0.11 H, Neutrophils % 77.9 H, Lymphocytes % 11.5 L, Monocytes % 6.9, Eosinophils % 2.4, Basophils % 0.5, Nucleated RBC % 0.0, Neutrophils # 10.2 H, Lymphocytes # 1.50, Monocytes # 0.9, Eosinophils # 0.3, Absolute Basophils 0.1 09/21/19 06:15: Sodium 149 H, Plasma Sodium 149 H, Potassium 2.7 L D, Chloride 105, Carbon Dioxide 33.2 H, Anion Gap 13.5, BUN 59 H, Creatinine 1.49 H D, Est GFR (Non-Af Amer) 48 L D, BUN/Creatinine Ratio 39.6 H, Random Glucose 102, Calcium 8.8, Calcium Adj for Albumin 8.7, Total Bilirubin 1.6 H, AST 92 H, ALT 99 H, Alkaline Phosphatase 129, Total Protein 7.5, Albumin 3.7 09/22/19 06:00: PT 24.3 H, INR (Anticoag Therapy) 2.54 H 09/23/19 06:22: PT 23.8 H, INR (Anticoag Therapy) 2.49 H 09/23/19 06:22: WBC 10.7 H, RBC 4.10 L, Hgb 12.7 L, Hct 40.3 L, MCV 98.3, MCH 3 1.0, MCHC 31.5 L, RDW 19.5 H, Plt Count 203, MPV 11.4 H, Immature Gran % (Auto) 0.70 H, Immature Gran # (Auto) 0.08 H, Neutrophils % 75.1 H, Lymphocytes % 13.1 L, Monocytes % 7.8, Eosinophils % 2.6, Basophils % 0.7, Nucleated RBC % 0.0, Neutrophils # 8.1 H, Lymphocytes # 1.41 L, Monocytes # 0.8, Eosinophils # 0.3, Absolute Basophils 0.1 09/23/19 06:22: Sodium 143 H, Plasma Sodium 143 H, Potassium 3.8 D, Chloride 104, Carbon Dioxide 30.3, Anion Gap 12.5, BUN 28 H D, Creatinine 1.10, Est GFR (Non-Af Amer) 69 D, BUN/Creatinine Ratio 25.5 H, Random Glucose 99, Calcium 8. 4, Calcium Adj for Albumin 8.6, Total Bilirubin 1.4 H, AST 66 H, ALT 78 H, Alkaline Phosphatase 134, Total Protein 6.8, Albumin 3.4 Discharge Location: [facility] Disposition: SNF Condition: Fair Level of Care: SNF Discharge Activity: Activity as tolerated Discharge Diet: Low salt Snf Therapy: Physical Therapy, Occupation Therapy Referrals: Juice Adan MD [Primary Care Provider] - (Follow at the [facility] or bring to clinic as needed.) Problem Oriented Discharge Instructions to Patient/Family: Urinary Tract Infection, Adult, [id number] Additional Patient Instructions (free text): Return to [facility]. Oxygen at night at 2lpm, may use during the day to keep oxygen sats >89%. Prescriptions (Any new or edited meds): Ciprofloxacin HCl [Cipro] 500 mg PO BID #10 tab Transmission Status: Received by [facility] Lisinopril [Zestril] 2.5 mg PO DAILY #30 tab Transmission Status: Received by [facility] Complete Home Medications List: Complete Home Medication List: fluocinolone 0.025 % topical cream 1 applic TP BID #120 g 08/13/18 fexofenadine 180 mg tablet 180 mg PO DAILY #30 tab 10/20/18 omega-3 fatty acids 1,000 mg capsule 1,000 mg PO DAILY #30 cap 10/20/18 omeprazole 40 mg capsule,delayed release 40 mg PO BID #180 cap 10/20/18 vitamin B complex 1 tab PO DAILY #30 tab 10/20/18 betamethasone valerate 0.1 % topical cream 1 applic TP BID #45 g 05/05/19 Acetaminophen 650 mg PO BID PRN 08/31/19 mupirocin 2 % topical ointment 1 applic TP BID #22 g 08/31/19 Allopurinol [Zyloprim] 100 mg PO DAILY 09/19/19 Amlodipine Besylate 5 mg PO DAILY 09/19/19 Ascorbic Acid [Vitamin C] 1,000 mg PO DAILY 09/19/19 Atenolol [Tenormin] 25 mg PO DAILY 09/19/19 Beta-Carotene [Beta Carotene] 4 cap PO DAILY 09/19/19 Bisacodyl [Laxative] 2 tab PO DAILY PRN 09/19/19 Calcium Carbonate [Calcium Antacid] 500 mg PO TID PRN 09/19/19 Clotrimazole [Lotrimin Cream] 1 appl TOPICAL BID 09/19/19 Colchicine 0.6 mg PO DAILY 09/19/19 Ferrous Sulfate 325 mg PO BID 09/19/19 Furosemide [Lasix] 60 mg PO BID 09/19/19 Potassium Chloride [Klor-Con M20] 2 tab PO DAILY 09/19/19 Saliva Stimulant Agents Comb.3 [Biotene Moisturizing Mouth] 1 spray MM TID PRN 09/19/19 Warfarin Sodium [Jantoven] 4 mg PO DAILY 09/19/19 Ciprofloxacin HCl [Cipro] 500 mg PO BID #10 tab 09/23/19 Lisinopril [Zestril] 2.5 mg PO DAILY #30 tab 09/23/19
[2019-09-23 11:00] VITALS: BP 150/70
== END 2019-09-23 11:15 | DRG 291 ==
LOC: MS 06:38 → ER 06:38 → MS 10:00
PROVIDERS: ADMIT Internal Medicine; ATTEND Internal Medicine
DX: I27.20 Pulmonary hypertension, unspecified; B96.5 Pseudomonas (aeruginosa) (mallei) (pseudomallei) as the cause of diseases classified elsewhere; G47.33 Obstructive sleep apnea (adult) (pediatric); I35.1 Nonrheumatic aortic (valve) insufficiency; J96.00 Acute respiratory failure, unspecified whether with hypoxia or hypercapnia; G93.41 Metabolic encephalopathy; I13.0 Hypertensive heart and chronic kidney disease with heart failure and stage 1 through stage 4 chronic kidney disease, or unspecified chronic kidney disease; I50.33 Acute on chronic diastolic (congestive) heart failure; N18.3 Chronic kidney disease, stage 3 (moderate); N39.0 Urinary tract infection, site not specified; Z87.891 Personal history of nicotine dependence; R53.1 Weakness; K21.9 Gastro-esophageal reflux disease without esophagitis; E87.6 Hypokalemia
CPT/HCPCS: 36415; 36416; 36600; 71010; 71045; 80053; 81001; 82550; 82553; 82803; 83519; 83605; 83880; 84145; 84484; 85025; 85610; 87040; 87077; 87081; 87086; 87186; 93005; 94660; 94760; 96365; 96375; 96376; 99285; G0378

== ENCOUNTER 2021-04-08 11:56 | Observation (INO) ==
[~2021-04-08 11:56] MED LIST: NORMAL SALINE 1,000 ML IV ONE
--- NOTE | 2021-04-08 12:23 | ERNOTE ---
Medical Problem HPI - Narrative Date of Service: 04/08/21 - General Chief Complaint: General Assessment Time Seen by Provider: 04/08/21 12:13 Source: patient, family, RN notes reviewed, old records Exam Limitations: clinical condition - Immun/Allergies/Home Medications Immunizations: IMMUNIZATION HX Immunizations Up to Date Yes History of Influenza Vaccine Yes Hx Pneumococcal Vaccination Yes Allergies/Adverse Reactions: Allergies chocolate flavor Allergy (Severe, Verified 02/25/21 08:54) Swelling of Face hydralazine [Hydralazine] Adverse Reaction (Intermediate, Verified 02/25/21 08:54) Nausea levofloxacin [From Levaquin] Adverse Reaction (Intermediate, Verified 02/25/21 08:54) feet swelling Home Medications: HOME MEDICATIONS Acetaminophen 650 mg PO BID PRN 08/31/19 [Last Taken 09/17/19 19:24] Bisacodyl [Laxative] 2 tab PO DAILY PRN 09/19/19 [Last Taken 09/17/19 08:50] walker See Rx Instructions .ROUTE .MEDSUPPLY #1 ea 10/04/19 [Last Taken Unknown] ascorbic acid (vitamin C) 1,000 mg tablet 1,000 mg PO DAILY #30 tab 10/12/19 [Last Taken Unknown] beta carotene 25,000 unit capsule 100,000 unit PO DAILY #120 cap 10/12/19 [Last Taken Unknown] calcium carbonate 200 mg calcium (500 mg) chewable tablet 500 mg PO TID PRN #90 tab 10/12/19 [Last Taken Unknown] omega-3 fatty acids 1,000 mg capsule 1,000 mg PO DAILY #30 cap 10/12/19 [Last Taken Unknown] peg [id number] 1 %-0.2 %-0.2 % eye drops 1 drp OP BID PRN #30 ml 10/12/19 [Last Taken Unknown] vitamin B complex 1 tab PO DAILY #30 tab 10/12/19 [Last Taken Unknown] diphenhydramine HCl 25 mg capsule 25 mg PO HS #30 cap 11/30/19 [Last Taken Unknown] ferrous sulfate 325 mg (65 mg iron) tablet 325 mg PO DAILY #30 tab 01/20/20 [Last Taken Unknown] warfarin 10 mg tablet See Rx Instructions .ROUTE .COMPLEX #30 tab 05/22/20 [Last Taken Unknown] nystatin 100,000 unit/gram topical powder 1 applic TP BID #30 g 06/15/20 [Last Taken Unknown] tamsulosin 0.4 mg capsule 0.4 mg PO HS #30 cap 08/09/20 [Last Taken Unknown] cetirizine 10 mg tablet 10 mg PO DAILY #30 tab 08/29/20 [Last Taken Unknown] oxymetazoline 0.05 % nasal spray 2 spray MICHEAL BID PRN #22 ml 08/29/20 [Last Taken Unknown] warfarin 5 mg tablet See Rx Instructions .ROUTE .COMPLEX #4 unknown measurement unit code: tablet 11/09/20 [Last Taken Unknown] amlodipine 5 mg tablet 5 mg PO DAILY #30 tab 11/13/20 [Last Taken Unknown] betamethasone valerate 0.1 % topical cream 1 applic TP BID #45 g 01/14/21 [Last Taken Unknown] nystatin 100,000 unit/gram topical cream 1 applic TP DAILY #30 g 01/14/21 [Last Taken Unknown] allopurinol 100 mg tablet See Rx Instructions .ROUTE .COMPLEX #60 unknown measurement unit code: tablet 02/01/21 [Last Taken Unknown] furosemide 40 mg tablet 60 mg PO BID #90 tab 03/04/21 [Last Taken Unknown] potassium chloride 10 mEq capsule,extended release 30 meq PO DAILY #90 cap 03/04/21 [Last Taken Unknown] atenolol 50 mg tablet 25 mg PO DAILY #15 tab 03/22/21 [Last Taken Unknown] lisinopril 2.5 mg tablet See Rx Instructions .ROUTE .COMPLEX #30 unknown measurement unit code: tablet 03/22/21 [Last Taken Unknown] omeprazole 40 mg capsule,delayed release See Rx Instructions .ROUTE .COMPLEX #60 unknown measurement unit code: capsule 03/22/21 [Last Taken Unknown] - History of Present History Narrative: Patient arrives via EMS cart,He had a brief episode of syncope . Pt was at Dinner , fainted and fell to the floor. He does not remember what happened. Pt was moving all four extremities, per EMS report. At arrival patient was confused, HR= 36 bpm, SBP= 60 mm Hg , Pt had weakness of RUE and RLE . He was oriented to person , not oriented to place/time . NIHSS= 10 (at arrival ) . Patient has h/o A Fib,He took Metoprolol 25 mg this morning . Date (Duration): 04/08/21 Timing: other - single episode Severity: severe Modifying Factors - (Improves): Present: medication, other - lying down Modifying Factors - (Worsens): Present: movement, other - standing up Review of Systems - Review of Systems Constitutional: Absent: recent illness, fever, diaphoresis EYE: Absent: blurred vision ENT: Present: sore throat. Absent: ear pain, nose congestion Respiratory: Absent: shortness of breath, cough Cardiology: Present: syncope. Absent: chest pain, palpitations, edema Gastrointestinal/Abdominal: Absent: nausea, vomiting, diarrhea, constipation, abdominal pain Genitourinary: Absent: frequency, pain, dysuria, hematuria Musculoskeletal: Absent: back pain, neck pain Skin: Absent: rash Neurological: Absent: anxiety, depressed Endocrine: Absent: excessive sweating, flushing Hematologic/Lymphatic: Absent: easy bruising, easy bleeding, swollen glands Psych: Absent: anxiety, depressed All Other Systems: All systems neg except as marked Medical History (Last Reviewed 02/25/21 @ 08:52 by Cyn Triana RN) Edema (Chronic) improving Gastroesophageal reflux disease (Chronic) Hypertension (Chronic) Ankle fracture Onset Date: Unknown Influenza vaccine not given Onset Date: ~10/01/20 Has already received for season. PRASAD Yarbrough Ingrown nail Onset Date: ~09/23/13 Aortic insufficiency Onset Date: Unknown Mild to moderate aortic insufficiency with well preserved left ventricular function BPH (benign prostatic hyperplasia) Onset Date: Unknown Cholecystitis Onset Date: Unknown Cholelithiasis Onset Date: Unknown DJD (degenerative joint disease), multiple sites Onset Date: Unknown Erectile dysfunction Onset Date: Unknown History of gastroesophageal reflux (GERD) Onset Date: ~05/27/11 Hypertension Onset Date: ~05/24/11 Obesity Onset Date: Unknown Obstructive sleep apnea Onset Date: Unknown refuses to wear cpap Pneumonia Onset Date: Unknown Pulmonary hypertension Onset Date: Unknown felt to be secondary to sleep apnea Rhinitis Onset Date: Unknown Vitamin D deficiency Onset Date: Unknown Surgical History: Surgical History (Last Reviewed 02/25/21 @ 08:52 by Cyn Triana RN) H/O adenoidectomy Onset Date: Unknown as a teenager H/O colonoscopy Onset Date: ~02/11/05 with biopsy Tinguely; scattered sigmoid diverticulosis. Left colon polyp History of appendectomy Onset Date: Unknown History of esophagogastroduodenoscopy (EGD) Onset Date: ~02/11/05 Tinguely; irritation/inflammation History of laparoscopic cholecystectomy Onset Date: ~04/11/10 Tinguely; with cholangiography History of tonsillectomy Onset Date: Unknown as a teenager Skin lesion Onset Date: ~06/16/14 Bagan; Multiple around neck Family History: Family History (Last Reviewed 02/25/21 @ 08:52 by Cyn Triana RN) Father , age 70 Myocardial infarction Mother , age 78 Heart disease Social History: (Last Updated 03/04/21 @ 18:03 by Juice Adan MD) Social History: adopted: No long term: No Marital status: / lives independently: Yes household members: none current occupational status: retired Highest level of school completed/degree received: 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: occupat Service: Yes branch: [employer] Tobacco: Smoking Status: Former smoker how long ago did patient quit smoking: age 40's Alcohol: alcohol intake: former Substance Use: substance use type: does not use Dietary Habits: caffeine: Yes Physical Exam - Physical Exam General Appearance: Present: alert, severe distress, lethargic Head Exam: Present: normal inspection, no evidence of injury, no tenderness w palpation, active bleeding Eye Exam: Normal inspection: bilateral, PERRL: bilateral, EOMI: bilateral Ears, Nose, Throat: Present: normal ENT inspection, pharyngeal erythema, dry mucous membranes. Absent: pharyngeal swelling, tonsillar exudate, tonsillar swelling Neck: Present: normal inspection, nontender, supple, full range of motion Respiratory: Present: no respiratory distress, normal breath sounds, no accessory muscle use, chest nontender, lungs clear Cardiovascular/Chest: Present: bradycardia, irregularly irregular, systolic murmur Gastrointestinal/Abdominal: Present: normal bowel sounds, nontender, nondistended, soft, no organomegaly Back Exam: Present: normal inspection, normal range of motion, no CVA tenderness, no vertebral tenderness Extremity Exam: Present: normal inspection, non-tender, no edema Neurological Exam: Present: alert, oriented - oriented to person,not oriented to place or time , 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 Absent: skin rash Lymphatic Exam: Present: no adenopathy Progress - Results and Orders Patient's Lab Results:: I have reviewed the patient's lab results. - Vital Signs Patient's Vital Signs:: I have reviewed the patient's vital signs. Vital Signs: Vital Signs 04/08/21 12:05 Temperature 36.4 C Pulse Rate 42 L Respiratory Rate 17 Blood Pressure 72/38 L O2 Sat by Pulse Oximetry 100 - EKG EKG #1 EKG: atrial fibrillation EKG Comments: slow ventricular response,prolonged QT - X-Ray X-Ray #1 X-Ray: chest Interpretation: Reviewed by me X-ray Comments: IMPRESSION: NO ACUTE CHEST DISEASE. - CT/Ultrasound CT/Ultrasound Narrative: PRESSION: NO ACUTE INTRACRANIAL ABNORMALITY OR SKULL FRACTURE. CHRONIC SENESCENT CHANGE. - Progress/Reassessment Chief Complaint: General Assessment Progress:: Improved Progress Note-Subjective: 04/08/21 14:59 Patient was given Atropine 1 mg IV,IVF ( NS 1000 ml ) . Pt feels much better, HR= 66 bpm , BP- 112/65 m Hg . Pt feels better,He is alert and oriented x 3 , denies headache or chest pain. No neuro deficits, RUE and RLE weakness resolved in < 5 minutes . Troponin negative . ECG= A Fib slow ventricular response. Head CT scan= negative . Patient is admitted at [facility]accepting physician is Dr Alejandra . Departure Clinical Impression: Bradycardia, TIA (transient ischemic attack), Hypokalemia - Departure Disposition: Still a patient Condition: Stable Referrals: Juice Adan MD [Primary Care Provider] - NIHSS - Date/Time of assessment Stroke Scale Time: 12:00 - NIH Stroke Scale Level of Consciousness: Alert LOC Questions (Year and Age): Answers neither correctly LOC Commands (open/close eyes/fist): Performs neither correct Lateral Gaze Paresis: None Visual Field Loss: No visual loss Facial Palsy: Normal movement Right Arm Motor (10 sec hold): No effort, limb falls Left Arm Motor (10 sec hold): No drift Right Leg Motor (5 sec hold): No effort, limb falls Left Leg Motor (5 sec hold): No drift Limb Ataxia (finger/nose heel/little): Untestable Sensory Loss (pinprick arms/legs/face): No sensory loss Language Aphasia (description/naming/reading): No aphasia; normal Dysarthria (speech clarity): Normal articulation Neglect Inattention (visual/tactile/auditory/spatial/person): No neglect Initial Stroke Scale Score:: 10
[2021-04-08 12:42] LABS: Hematocrit 36.3 % (42.0-52.0); Hemoglobin 11.9 gm/dL (13.5-18.0); Mean Cell Volume 100.3 fl (78-100); Mean Corpuscular Hemoglobin 32.9 pg (27-31); Mean Corpuscular Hgb Conc 32.8 g/dl (32-36); Mean Platelet Volume 10.1 fl (8-11.3); Neutrophil # 4.4 K/mm3 (1.3-6.0); Neutrophil % 65.5 % (42-75.0); Platelet Count 137 K/mm3 (150-450); Red Blood Count 3.62 M/mm3 (4.7-6.0); Red Cell Distribution Width 14.4 % (11.5-14.0); White Blood Count 6.6 K/mm3 (4.0-10.5)
[2021-04-08] MEDS ORDERED: LIDOCAINE HCL 15 ML UDC MM ONE (12:43)
[2021-04-08 12:51] LABS: Prothrombin Time (Patient) 34.9 Seconds (9.1-10.7)
[2021-04-08 12:56] LABS: Albumin * 3.5 gm/dl (3.4-5.0); BUN/Creatinine Ratio 19.4 (9.0-21.6); Bilirubin, Total 0.7 mg/dL (0.0-1.1); Ca. Corrected For Albumin 8.8 mg/dL (8.4-10.2); Calcium * 8.7 mg/dL (7.9-10.9); Carbon Dioxide 30.3 mmol/L (24-32.6); Potassium 3.3 mmol/L (3.4-4.6); Total Protein 6.3 gm/dL (6.2-8.2)
[2021-04-08 12:58] LABS: INR 3.57 INR (0.92-1.08); Partial Thrombolplastin Time 32.7 Seconds (24-32)
[2021-04-08] MEDS ORDERED: ONDANSETRON HCL/PF 2 MG/ML VIAL IV ONE (14:02)
[2021-04-08 14:19] LABS: BNP * 4326 pg/mL (5-650)
[2021-04-08 14:20] LABS: Troponin I Less than 0.017 ng/mL (0.00-0.10)
[2021-04-08] MEDS ORDERED: POTASSIUM CHLORIDE 20 MEQ TABLET.SA PO ONE (14:27)
[2021-04-08] MEDS ORDERED: PANTOPRAZOLE SODIUM 40 MG/100 ML PIGGYBACK IV ONE (14:31)
[2021-04-08] MEDS ORDERED: ATROPINE SULFATE 1 MG/ML VIAL IV ONE (15:12)
[2021-04-08] MEDS ORDERED: PHENOL 180 SPRAY BTL MM PRN (18:07)
[2021-04-08 21:28] VITALS: BP 0/0
--- NOTE | 2021-04-08 23:50 | HP ---
Chief Complaint - Chief Complaint Date of Service: 04/08/21 Time of Service: 17:00 Chief Complaint: Right sided weakness, confusion History of Present Illness: Mariano is an 80 yo male that was meeting friends at a dinner when he became confused and lost the function of the right side of his body. There were reports the he was unresponsive. He was brought to [facility] ER where his heart rate was found to be 30. He was given atropine and heart rate improved to 60s and he quickly returned to his baseline. He was awake, alert, and talking normal. He had regained complete motor function in all extremities. His only complaint was a sore throat. He takes a beta gabo that had not recently been adjusted. In the ER his heart rate ranged from 60s to 40s after the atropine but he remained asymptomatic. ER requested admit to observation to monitor bradycardia and neurological symptoms. Medical History (Last Reviewed 04/08/21 @ 15:25 by Dieter Dyson) Edema (Chronic) improving Gastroesophageal reflux disease (Chronic) Hypertension (Chronic) Ankle fracture Onset Date: Unknown Influenza vaccine not given Onset Date: ~10/01/20 Has already received for season. PRASAD Yarbrough Ingrown nail Onset Date: ~09/23/13 Aortic insufficiency Onset Date: Unknown Mild to moderate aortic insufficiency with well preserved left ventricular function BPH (benign prostatic hyperplasia) Onset Date: Unknown Cholecystitis Onset Date: Unknown Cholelithiasis Onset Date: Unknown DJD (degenerative joint disease), multiple sites Onset Date: Unknown Erectile dysfunction Onset Date: Unknown History of gastroesophageal reflux (GERD) Onset Date: ~05/27/11 Hypertension Onset Date: ~05/24/11 Obesity Onset Date: Unknown Obstructive sleep apnea Onset Date: Unknown refuses to wear cpap Pneumonia Onset Date: Unknown Pulmonary hypertension Onset Date: Unknown felt to be secondary to sleep apnea Rhinitis Onset Date: Unknown Vitamin D deficiency Onset Date: Unknown Surgical History: Surgical History (Last Reviewed 04/08/21 @ 15:25 by Dieter Dyson) H/O adenoidectomy Onset Date: Unknown as a teenager H/O colonoscopy Onset Date: ~02/11/05 with biopsy Tinguely; scattered sigmoid diverticulosis. Left colon polyp History of appendectomy Onset Date: Unknown History of esophagogastroduodenoscopy (EGD) Onset Date: ~02/11/05 Tinguely; irritation/inflammation History of laparoscopic cholecystectomy Onset Date: ~04/11/10 Tinguely; with cholangiography History of tonsillectomy Onset Date: Unknown as a teenager Skin lesion Onset Date: ~06/16/14 [place]; Multiple around neck Family History: Family History (Last Reviewed 04/08/21 @ 15:25 by Dieter Dyson) Father , age 70 Myocardial infarction Mother , age 78 Heart disease Social History: (Last Reviewed 04/08/21 @ 15:25 by Dieter Dyson) Social History: adopted: No senior living: No Marital status: / lives independently: Yes household members: none current occupational status: retired Highest level of school completed/degree received: 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: occupat Service: Yes branch: [employer] Tobacco: Smoking Status: Former smoker how long ago did patient quit smoking: age 40's Alcohol: alcohol intake: former Substance Use: substance use type: does not use Dietary Habits: caffeine: Yes Review Of Systems (GEN) - Review of Systems Generalized/Overall Review: Absent: Weakness, Chills, Fever EENTM: Present: Throat Pain Respiratory: Absent: Cough, Shortness of Breath Cardiac: Absent: Chest Pain, Palpitations Abdominal: Absent: Nausea, Vomiting Genitourinary: Absent: Burning, Frequency Musculoskeletal: Present: No Symptoms Reported Neurological: Absent: Headache, Numbness Skin: Present: No Symptoms Reported Immunizations: IMMUNIZATION HX Immunizations Up to Date Yes History of Influenza Vaccine Yes Hx Pneumococcal Vaccination Yes Allergies/Adverse Reactions: Allergies Allergy/AdvReac Type Severity Reaction Status Date / Time chocolate flavor Allergy Severe Swelling Verified 04/08/21 15:26 of Face hydralazine [Hydralazine] AdvReac Intermediate Nausea Verified 04/08/21 15:26 levofloxacin [From Levaquin] AdvReac Intermediate feet Verified 04/08/21 15:26 swelling Home Medications: HOME MEDICATIONS Acetaminophen 650 mg PO BID PRN 08/31/19 [Last Taken 09/17/19 19:24] Bisacodyl [Laxative] 2 tab PO DAILY PRN 09/19/19 [Last Taken 09/17/19 08:50] walker See Rx Instructions .ROUTE .MEDSUPPLY #1 ea 10/04/19 [Last Taken Unknown] ascorbic acid (vitamin C) 1,000 mg tablet 1,000 mg PO DAILY #30 tab 10/12/19 [Last Taken Unknown] beta carotene 25,000 unit capsule 100,000 unit PO DAILY #120 cap 10/12/19 [Last Taken Unknown] calcium carbonate 200 mg calcium (500 mg) chewable tablet 500 mg PO TID PRN #90 tab 10/12/19 [Last Taken Unknown] omega-3 fatty acids 1,000 mg capsule 1,000 mg PO DAILY #30 cap 10/12/19 [Last Taken Unknown] peg [id number]-[id number] 1 %-0.2 %-0.2 % eye drops 1 drp OP BID PRN #30 ml 10/12/19 [Last Taken Unknown] vitamin B complex 1 tab PO DAILY #30 tab 10/12/19 [Last Taken Unknown] diphenhydramine HCl 25 mg capsule 25 mg PO HS #30 cap 11/30/19 [Last Taken Unknown] ferrous sulfate 325 mg (65 mg iron) tablet 325 mg PO DAILY #30 tab 01/20/20 [Last Taken Unknown] warfarin 10 mg tablet See Rx Instructions .ROUTE .COMPLEX #30 tab 05/22/20 [Last Taken Unknown] nystatin 100,000 unit/gram topical powder 1 applic TP BID #30 g 06/15/20 [Last Taken Unknown] tamsulosin 0.4 mg capsule 0.4 mg PO HS #30 cap 08/09/20 [Last Taken Unknown] cetirizine 10 mg tablet 10 mg PO DAILY #30 tab 08/29/20 [Last Taken Unknown] oxymetazoline 0.05 % nasal spray 2 spray MICHEAL BID PRN #22 ml 08/29/20 [Last Taken Unknown] warfarin 5 mg tablet See Rx Instructions .ROUTE .COMPLEX #4 unknown measurement unit code: tablet 11/09/20 [Last Taken Unknown] amlodipine 5 mg tablet 5 mg PO DAILY #30 tab 11/13/20 [Last Taken Unknown] betamethasone valerate 0.1 % topical cream 1 applic TP BID #45 g 01/14/21 [Last Taken Unknown] nystatin 100,000 unit/gram topical cream 1 applic TP DAILY #30 g 01/14/21 [Last Taken Unknown] allopurinol 100 mg tablet See Rx Instructions .ROUTE .COMPLEX #60 unknown measurement unit code: tablet 02/01/21 [Last Taken Unknown] furosemide 40 mg tablet 60 mg PO BID #90 tab 03/04/21 [Last Taken Unknown] potassium chloride 10 mEq capsule,extended release 30 meq PO DAILY #90 cap 03/04/21 [Last Taken Unknown] atenolol 50 mg tablet 25 mg PO DAILY #15 tab 03/22/21 [Last Taken Unknown] lisinopril 2.5 mg tablet See Rx Instructions .ROUTE .COMPLEX #30 unknown measurement unit code: tablet 03/22/21 [Last Taken Unknown] omeprazole 40 mg capsule,delayed release See Rx Instructions .ROUTE .COMPLEX #60 unknown measurement unit code: capsule 03/22/21 [Last Taken Unknown] Exam - Exam Vital Signs: Vital Signs - Last Taken Temp 0 C L 04/08/21 21:27 Pulse 0 L 04/08/21 21:27 Resp 0 L 04/08/21 21:27 BP 0/0 L 04/08/21 21: Pulse Ox 0 L 04/08/21 21:27 Constitutional: Present: Alert, Oriented x3, Cooperative, No distress ENT Exam: Present: hearing grossly normal Eye Exam: bilateral eye: normal inspection Respiratory: Present: lungs clear, normal breath sounds Cardiovascular/Chest: Present: no murmur, irregularly irregular Peripheral Pulses: radial (R): 2+, radial (L): 2+ Abdomen: Present: Normal bowel sounds, soft, nontender, nondistended Extremity: Present: normal inspection, normal capillary refill Skin Exam: Present: warm/dry, no cyanosis, pallor Neurologic: Present: no motor/sensory deficits, alert, normal mood/affect, oriented x 3 Appearance: Present: appropriate appearance, appropriate insight Eye contact: Present: cooperative, good eye contact, normal speech Diagnostic Studies: Abnormal Lab Results 04/08/21 04/08/21 04/08/21 Range/Units 12:37 12:37 12:37 RBC 3.62 L (4.7-6.0) M/mm3 Hgb 11.9 L (13.5-18.0) gm/dL Hct 36.3 L (42.0-52.0) % MCV 100.3 H (78-100) fl MCH 32.9 H (27-31) pg RDW 14.4 H (11.5-14.0) % Plt Count 137 L (150-450) K/mm3 Immature Gran % (Auto) 0.50 H (0.001-0.429) % PT 34.9 H (9.1-10.7) Seconds INR (Anticoag Therapy) 3.57 H (0.92-1.08) INR PTT ([place]ago) 32.7 H (24-32) Seconds Potassium 3.3 L (3.4-4.6) mmol/L Random Glucose 123 H (70-110) mg/dL B-Natriuretic Peptide (5-650) pg/mL 04/08/21 Range/Units 12:39 RBC (4.7-6.0) M/mm3 Hgb (13.5-18.0) gm/dL Hct (42.0-52.0) % MCV (78-100) fl MCH (27-31) pg RDW (11.5-14.0) % Plt Count (150-450) K/mm3 Immature Gran % (Auto) (0.001-0.429) % PT (9.1-10.7) Seconds INR (Anticoag Therapy) (0.92-1.08) INR PTT ([place]) (24-32) Seconds Potassium (3.4-4.6) mmol/L Random Glucose (70-110) mg/dL B-Natriuretic Peptide 4326 H (5-650) pg/mL Laboratory Results WBC 6.6 K/mm3 (4.0-10.5) 04/08/21 12:37 RBC 3.62 M/mm3 (4.7-6.0) L 04/08/21 12:37 Hgb 11.9 gm/dL (13.5-18.0) L 04/08/21 12:37 Hct 36.3 % (42.0-52.0) L 04/08/21 12:37 MCV 100.3 fl (78-100) H 04/08/21 12:37 MCH 32.9 pg (27-31) H 04/08/21 12:37 MCHC 32.8 g/dl (32-36) 04/08/21 12:37 RDW 14.4 % (11.5-14.0) H 04/08/21 12:37 Plt Count 137 K/mm3 (150-450) L 04/08/21 12:37 MPV 10.1 fl (8-11.3) 04/08/21 12:37 Immature Gran % (Auto) 0.50 % (0.001-0.429) H 04/08/21 12:37 Immature Gran # (Auto) 0.03 K/mm3 (0.000-0.0310) 04/08/21 12:37 Neutrophils % 65.5 % (42-75.0) 04/08/21 12:37 Lymphocytes % 23.0 % (20-51) 04/08/21 12:37 Monocytes % 7.5 % (0.0-9) 04/08/21 12:37 Eosinophils % 2.9 % (0.0-3.0) 04/08/21 12:37 Basophils % 0.6 % (0.0-1.0) 04/08/21 12:37 Nucleated RBC % 0.0 k/mm3 (0-1) 04/08/21 12:37 Neutrophils # 4.4 K/mm3 (1.3-6.0) 04/08/21 12:37 Lymphocytes # 1.53 k/mm3 (1.5-3.5) 04/08/21 12:37 Monocytes # 0.5 k/mm3 (0.0-1.0) 04/08/21 12:37 Eosinophils # 0.2 k/mm3 (0.0-0.7) 04/08/21 12:37 Absolute Basophils 0.0 k/mm3 (0.0-0.1) 04/08/21 12:37 ESR 10 mm/hr (0-10) 04/08/21 12:37 PT 34.9 Seconds (9.1-10.7) H 04/08/21 12:37 INR (Anticoag Therapy) 3.57 INR (0.92-1.08) H 04/08/21 12:37 PTT (Tiago) 32.7 Seconds (24-32) H 04/08/21 12:37 Sodium 142 mmol/L (132-142) 04/08/21 12:37 Plasma Sodium 142 mmol/L (130-142) 04/08/21 12:37 Potassium 3.3 mmol/L (3.4-4.6) L 04/08/21 12:37 Chloride 104 mmol/L (97-106) 04/08/21 12:37 Carbon Dioxide 30.3 mmol/L (24-32.6) 04/08/21 12:37 Anion Gap 11.0 mmol/L (6.8-13.8) 04/08/21 12:37 BUN 19 mg/dL (6-23) 04/08/21 12:37 Creatinine 0.98 mg/dL (0.4-1.4) 04/08/21 12:37 Est GFR (Non-Af Amer) 78 mL/min (60-130) D 04/08/21 12:37 BUN/Creatinine Ratio 19.4 (9.0-21.6) 04/08/21 12:37 Random Glucose 123 mg/dL (70-110) H 04/08/21 12:37 Calcium 8.7 mg/dL (7.9-10.9) 04/08/21 12:37 Calcium Adj for Albumin 8.8 mg/dL (8.4-10.2) 04/08/21 12:37 Magnesium 2.1 mg/dL (1.2-2.8) 04/08/21 14:23 Total Bilirubin 0.7 mg/dL (0.0-1.1) 04/08/21 12:37 AST 20 U/L (0-48) 04/08/21 12:37 ALT 20 U/L (19-67) 04/08/21 12:37 Alkaline Phosphatase 80 U/L (50-170) 04/08/21 12:37 Troponin I Less than 0.017 ng/mL (0.00-0.10) 04/08/21 12:39 B-Natriuretic Peptide 4326 pg/mL (5-650) H 04/08/21 12:39 Total Protein 6.3 gm/dL (6.2-8.2) 04/08/21 12:37 Albumin 3.5 gm/dl (3.4-5.0) 04/08/21 12:37 SARS-CoV-2 (PCR) Not detected (NotDetected) 04/08/21 15:03 Group A Strep Rapid Negative (NEGATIVE) 04/08/21 12:50 Assessment/Plan - Narrative Narrative: Mariano is an 80 yo male with: 1) Atrial Fibrillation with Slow ventricular Response - Improved after atropine, however he took his beta gabo this morning. Will plan to discontinue and pepper tor rate. He is currently asymptomatic and heart is typically in 50s but will briefly go to 60s or down to 40s. 2) TIA - Right sided neurodeficit has resolved, appeared to be related to bradycardia as it resolved with atropine. Head CT negative for acute changes. Will monitor neurological status 3) Will admit to observation and monitor heart rate and neuro status. - Assessment/Plan (1) Atrial fibrillation with slow ventricular response Problem: Acute (2) TIA (transient ischemic attack) Problem: Acute
--- NOTE | 2021-04-08 23:57 | DS ---
Discharge Summary - Provider Primary Care Provider: Juice Adan Admitting Clinician: Mega Alejandra Attending Physician on Admission: Mega Alejandra Pronouncing Clinician: Juan Loja - Date and Time Date of : 04/08/21 Time of : 19:00 - Diagnosis/Cause of (1) Cardiac arrest Problems: Acute (2) TIA (transient ischemic attack) Problems: Acute (3) Atrial fibrillation with slow ventricular response Problems: Acute (4) Atrial fibrillation Problems: Chronic - Summary Details (narrative): Mariano was admitted to observation after an episode of TIA and atrial fibrillation with slow ventricular response with heart rate in the 30s. This had improved with atropine given in the ER and had completely resolved his symptoms. He was admitted to observation to monitor his heart rate and any other neurological changes. At the time I saw him in the ER his symptoms were resolved and he was feeling at his baseline. He was brought to the floor talking and without symptoms. Nursing left his room but returned within minutes and found him having agonal breathing and unresponsive with faint pulse. Dr. Bob was called and ER physician presented to manage patient. Family was contacted who report patient had previously been a hospice patient and did not want heroic measures performed. Patient's time of called at 1900. Procedures Performed: none - Additional Data Confirmation of as documented by pronouncing clinician: no pulse, no respirations, no heart sounds, pupils fixed and dilated Family: at bedside Practitioner(Attending/PCP) notified: Yes Was code activated: Yes Autopsy requested: No Family Consumer Science Teacher notified: Yes Organ Bank notified: No Hospice patient: No
== END 2021-04-08 21:12 | disposition expired ==
LOC: MS 11:56 → ER 11:56 → MS 18:00
PROVIDERS: ADMIT Family Medicine; ATTEND Internal Medicine